=== PATIENT | female | born 1950 | race Caucasian/White ===

== ENCOUNTER → 2017-07-27 09:54 | Outpatient (REF) | payer MEDICARE, SELFPAY ==
[2017-07-27 13:31] LABS: Basophils % 0.8 % (0.1-2.0); Eosinophils % 0.6 % (0.1-12.0); Hematocrit 43.5 % (37.0-47.0); Hemoglobin 14.5 g/dL (12.2-16.2); Lymphocytes # 1.3 K/mm3 (0.7-4.5); Lymphocytes % 36.1 K/mm3 (10-50); Mean Corpuscular HGB Conc 33.2 g/dL (31.8-35.4); Mean Corpuscular Hemoglobin 33.1 pg (27.0-31.2); Mean Corpuscular Volume 99.6 fl (81-99); Monocytes # 0.2 K/mm3 (0.1-1.0); Monocytes % 6.5 % (1.7-9.3); Neutrophils # 2.1 K/mm3 (1.8-7.8); Neutrophils % 55.9 % (37.0-80.0); Platelet Count 293 K/mm3 (142-424); Red Blood Count 4.37 M/mm3 (4.20-5.40); Red Cell Distribution Width 12.5 % (11.5-17.5); White Blood Count 3.7 K/mm3 (4.8-10.8)
[2017-07-27 13:53] LABS: Alanine Aminotransferase 19 U/L (12-78); Albumin Level 3.9 gm/dL (3.4-5.0); Albumin/Globulin Ratio 1.3 (1.1-1.8); Alkaline Phosphatase 63 U/L (46-116); Anion Gap 9.6 mEq/L (5-15); Aspartate Amino Transferase 17 U/L (15-37); Bilirubin,Total 0.3 mg/dL (0.2-1.0); Blood Urea Nitrogen 13 mg/dL (7-18); Calcium 9.4 mg/dL (8.5-10.1); Carbon Dioxide 32 mmol/L (21.0-32.0); Chloride 105 mmol/L (98-107); Chol/HDL Ratio 4.6 (1-3.5); Cholesterol 268 mg/dL (140-200); Creatinine,Serum 0.71 mg/dL (0.55-1.02); Estimated Glomerular Filt Rate 83 ml/min (>60); Free T4 (Free Thyroxine) 0.84 ng/dl (0.76-1.46); GFR (African American) 100 ML/MIN (>60); Globulin 3.1 gm/dl (1.3-3.2); Glucose 95 mg/dL (74-106); HDL Cholesterol 58 mg/dL (29-89); LDL Cholesterol 193 mg/dL (0-130); Potassium 4.6 mmoL/L (3.5-5.1); Sodium 142 mmol/L (136-145); Thyroid Stimulating Hormone 5.84 uIU/ml (0.358-3.740); Triglycerides 83 mg/dL (30-200); VLDL Cholesterol 17 mg/dL (0-40)
[2017-07-28 15:40] LABS: Vitamin D 25 Hydroxy 69.2 ng/mL (30.0-100.0)
== END ==
LOC: LAB 09:54
PROVIDERS: Visit Provider Emergency Medicine
DX: R07.9 Chest pain, unspecified (principal); R53.83 Other fatigue
CPT/HCPCS: 80053; 80061; 82652; 84439; 84443; 85025

== ENCOUNTER → 2017-08-07 10:44 | Outpatient (CLI) | payer MEDICARE, MEDICAID, SELFPAY ==
--- NOTE | 2017-08-07 10:49 | XR_ITS ---
XR DEXA axial skeleton COMPARISON: None HISTORY: Patient is postmenopausal TECHNIQUE: DEXA scanning of the lumbar spine and bilateral hips FINDINGS: The areas BMD lumbar spine L1-L4 is 0.775 g/ centimeters squared and the T score is -3.4. The total BMD right hip is 0.776 g/sq cm with a T score of -1.8. And the right femoral neck is 0.645 g centimeters square with a T score of -2.8. The values are similar for the left hip. IMPRESSION: Findings in the osteoporotic range for the spine and bilateral hips, consider follow-up study in 2 years
--- NOTE | 2017-08-07 10:49 | MM_ITS ---
MM Dig screening mamm BI w/CAD CAD Screening COMPARISON: Digital mammograms 03/08/2012 INDICATION: There is no personal or family history of breast cancer. TECHNIQUE: Standard CC and MLO images were obtained. R2 CAD reviewed. FINDINGS: Moderate heterogenic fibroglandular densities are seen in both breast. There are stable asymmetric density lower inner quadrant left breast. There is no new or suspicious lesion in either breast and no suspicious microcalcifications. IMPRESSION: Stable exam with moderate diffuse breast density BI-RADS Category: 2 Benign Finding(s) RECOMMENDED FOLLOW-UP: 1YR - 1 YEAR FOLLOW-UP (A letter has been sent to the patient regarding results of the study.)
== END ==
PROVIDERS: PCP Emergency Medicine; Visit Provider Emergency Medicine
DX: Z12.31 Encounter for screening mammogram for malignant neoplasm of breast (principal); Z78.0 Asymptomatic menopausal state
CPT/HCPCS: 77067; 77080

== ENCOUNTER → 2017-08-12 06:42 | Outpatient (CLI) | payer MEDICARE, MEDICAID, SELFPAY ==
--- NOTE | 2017-08-12 06:55 | CA_ITS ---
PROCEDURE: 2-D M-mode and color Doppler study INDICATIONS FOR THE TEST: Chest pain+ COPD Heart Murmur Tobacco Smoking Palpitations+ Fatigue Syncope Edema+ Hypertension Diabetes Mellitus Rheumatic Fever SOB ZARATE Obesity Hyperlipidemia+ Family History HD Additional History PATIENT INFORMATION HEIGHT: 64 WEIGHT: 115 GENDER: Female B/P: 139/49 2-D/M-MODE INTERPRETATION: 2-D MEASUREMENTS OBSERVED VALUES IN CMS Right Ventricular Dimension (RVDd) 2.5 Interventricular Septum (Thickness)(IVsd) 0.9 Left Ventricular Internal Dimensions(LVIDd) 3.3 Left Ventricular Posterior Wall (Thickness)(LVPWd) 0.8 Aortic Root 2.0 Aortic Cusp Separation 1.6 Left Atrial Dimensions (LAD) 2.6 2D 1. Left atrium is normal size, left ventricle is normal size, there is no concentric left ventricular hypertrophy, visually estimated ejection fraction 55% with no obvious regional wall motion abnormality. 2. The right atrium and right ventricle are mildly enlarged with normal contractility. 3. The aortic valve is minimally thickened and fibrosed. 4. The mitral and tricuspid valvular grossly normal. 5. The pulmonic valve is poorly visualized. 6. No significant pericardial effusion noted. DOPPLER INTERROGATION: Doppler interrogation of the aortic, mitral and tricuspid valvular presence of mild aortic, mild mitral and tricuspid regurgitation, tricuspid and jet velocity insufficient for calculation of the right ventricular systolic pressure. Diastolic parameters are within normal range. CONCLUSION: 1. Normal left ventricular size, preserved left ventricular systolic function, visually estimated ejection fraction 55% with no obvious regional wall motion abnormality, diastolic parameters are within normal range. 2. Mild aortic, mild mitral and tricuspid regurgitation 3. No significant pericardial effusion noted.
--- NOTE | 2017-08-12 06:55 | NM_ITS ---
History and Indications: Hyperlipidemia, family history, chest pain. Procedure: Patient exercised on Ariel protocol 6 metastases and 30 seconds, resting heart rate was 92 bpm resting blood pressure 139/49, with exercise maximum heart rate achieved was 1 44 bpm which is equal to 93% of the maximum predicted heart rate and a blood pressure was 160/70. Test was stopped due to shortness of breath and fatigue. Patient has adequate exercise capacity achieved 7mets of workload on treadmill, the blood pressure response to exercise was adequate. Electrocardiogram: Resting electrocardiogram showed the sinus rhythm, with exercise there is less than 1.[address] segment depression noted from the baseline EKG. The EKG portion of the exercise Myoview is negative for ischemia. Cardiac stress and resting SPECT images: Cardiac stress and rest SPECT images were obtained using technetium 99 Myoview 31.4 mCi at stress and 10.8 mCi at rest, gated SPECT further analysis of segmental wall motion and calculation of the ejection fraction also done. Cardiac stress and rest show uniform myocardial activity without any segmental perfusion abnormality, computer derived ejection fraction is over 65% with no obvious regional wall motion abnormality, right ventricle is normal size and contractility. Conclusion: 1. The EKG portion of the exercise Myoview is negative for ischemia. Patient has adequate exercise capacity achieved 7mets of workload on treadmill, the blood pressure response to exercise was adequate, there was no exercise-induced chest discomfort. 2. No obvious scintigraphic evidence of reversible ischemia seen, computer derived ejection fraction is over 65% with no obvious regional wall motion abnormality, right ventricle is normal size and contractility. 3. Normal exercise Myoview study.
--- NOTE | 2017-08-12 09:13 | HMH.ITSHM ---
atorvastatin vitamins levothyroxine asa
== END ==
PROVIDERS: PCP Emergency Medicine; Visit Provider Emergency Medicine
DX: R07.9 Chest pain, unspecified (principal)
CPT/HCPCS: 78452; 93017; 93306; A9502

== ENCOUNTER 2018-10-31 11:50 | Observation (INO) ==
--- NOTE | 2018-10-31 12:20 | Emergency Department Note ---
[facility] [place] Clinical Impression: Fractured calcaneus Qualifiers: Encounter type: initial encounter Calcaneus location: unspecified portion of calcaneus Fracture type: closed Fracture alignment: displaced Laterality: right Qualified Code(s): S92.001A - Unspecified fracture of right calcaneus, initial encounter for closed fracture Disposition: Still a Patient Condition on Discharge: Good Referrals: Marilee Oliveros [Primary Care Provider] - Jena Max MD [Physician] - (To Or for surgical intervention by Dr Max) Time of Disposition: 13:49 Medical Decision Making - Je Inquiry Pt receiving controlled substance: No Je was queried for this patient: No Vital Signs: 10/31/18 12:01 10/31/18 12:10 Temperature 98.2 F 98.2 F Temperature Source Oral Oral Pulse Rate [Right Radial] 98 H 98 H Respiratory Rate 18 18 Blood Pressure [Right Arm] 141/85 H 141/85 H Blood Pressure Mean [Right Arm] 103 103 Blood Pressure Source [Right Arm] Automatic Cuff Automatic Cuff Blood Pressure Position [Right Arm] Sitting Sitting 02 Sat by Pulse Oximetry 96 96 Oxygen Delivery Method Room Air Room Air Orders (Tests/Meds): ORDERS Category Date Time Status Foot XR right minimum 3 views [XR foot RT min 3V] Stat Exams 10/31/18 12:15 Taken XR ankle RT min 3V Stat Exams 10/31/18 12:15 Taken XR calcaneus RT min 2V Routine Exams 10/31/18 Ordered CMP [Comprehensive Metabolic Panel] Stat Lab 10/31/18 13:38 Ordered Complete Blood Count Man Dif Stat Lab 10/31/18 13:38 Uncollected - Radiology Data #1 Image(s): Ankle, Foot/Toes Image Reviewed: Yes I reviewed the patient's radiology image Fractured calcaneus - Physician Consults Physician Consulted: Winter Time: 12:45 Reason -: Orthopedic Eval/Care Comment/Response: Spoke with Dr Max and informed her of xray findings, she is in house and will come to [facility] to see patient - Reevaluation(s) Time: 13:15 Reevaluation #1: Dr nEciso at bedside spoke with patient and informed her of Fractured Calcanous and that this required surgical intervention and patient would be going to surgery today/immediately patient verbalized understanding. Dr Max advised that she would notify OR team and would have patient moved to OR/bed and after she finished her current case patient would be taken to OR for surgery and they would discuss further treatment such as admission etc after surgery. Patient verbalized understanding Time: 13:42 Reevaluation #3: Spoke with house and clarified that Dr Max would be completing admission orders and patient could go to bed and wait for OR team. Patient care to be turned over to Dr Max and all further orders and treatment per leydi Time reevaluation 3: 13:48 Reevaluation #2: Patient to be admitted to room 213 Admission orders will be completed by Dr Max patient ready for transfer [facility] [place] - General Stated complaint: Right foot pain and swollen Time Seen by Provider: 10/31/18 12:17 Mode of Arrival: Wheelchair Source of Information: Patient Limitations: No Limitations Description of Symptoms (Recalled from Triage Doc. by RN): C/O RT FOOT/ANKLE PAIN, SWELLING, BRUISING AND BLISTERS SINCE THURSDAY. PT STATES THAT SHE WAS WALKING AND HEARD A "LOUD POP" AND THE BRUISING AND PAIN HAS GOTTEN WORSE SINCE THURSDAY HEENT Symptoms (Recalled from RN notes): No Resp Symptoms (Recalled from RN notes): No Skin Symptoms (Recalled from RN notes): No MS Symptoms (Recalled from RN notes): Yes (RT FOOT/ANKLE INJURY) Functional Status (Recalled from RN notes): N/A - History of Present Illness Provider Complaint: Patient state that she was walking Thursday evening when she felt and heard a loud "pop" in her right ankle State htat ever since she has been having bruising and pain in the right foot and ankle State that she also noticed she had a couple of blisters on the foot one on the side of the foot and one on the back of the heel that come since she heard the pop but she has been walking on it funny due to the pain and not sure if that may have caused it. Denies numbness and tingling in foot - Related Data Home Medications Medication Instructions Recorded Confirmed ergocalciferol (vitamin D2) 50,000 50,000 unit PO QWEEK cap 07/27/17 05/13/18 unit capsule Alendronate Sodium [Fosamax 70mg 70 mg PO WEEKLY 05/13/18 05/13/18 Tablet] Calcium Carbonate/Vitamin D3 1 cap PO DAILY 05/13/18 05/13/18 [Calcium 600 + Vit D Softgel] Levothyroxine Sodium [Synthroid 50 mcg PO DAILY 05/13/18 05/13/18 50mcg (0.05mg) tab] Allergies Allergy/AdvReac Type Severity Reaction Status Date / Time No Known Allergies Allergy Verified 08/10/17 09:03 - Worker's Comp Is this a Worker's Comp case?: No [facility] History - Hepatitis A Screen Drug use history?: No High risk sexual behaviors?: No History of sexually transmitted infection?: No Currently employed?: No Childcare worker?: No Do you have indoor plumbing?: Yes Do you have electricity?: Yes Attestation statement:: This patient has been screened for Hepatitis A risk factors. I have reviewed the patient's past medical history: Yes Other Medical History: Reports: Hypothyroidism Laterality Cases: Bilateral: Tonsillectomy Amputation: No Fractures: No - Social History Smoking Status: Never smoker Alcohol Intake: never Substance Use Type: denies use Occupational Status: retired Housing: apartment Household Members: other Family Hx:: Thyroid Disorder, Cancer, Heart Attack, Stroke ROS Obtained: Yes All systems reviewed & no additional complaints, Yes Systems reviewed as appropriate & no additional complaints - Allergic/Immunologic Comments: Pain, swelling bruising and two large blister on right foot and ankle since she was walking last Thursday and hear a pop in her foot unable to bear weight on it ever since Physical Exam - General General appearance: alert, in no apparent distress - Respiratory Respiratory exam: Present: normal lung sounds bilaterally. Absent: respiratory distress - Cardiovascular Cardiovascular exam: Present: regular rate, normal rhythm. Absent: JVD - Abdominal Exam Abdominal exam: Present: soft, normal bowel sounds. Absent: distention, tenderness, guarding - Expanded Lower Extremity Exam Right Ankle exam: Present: tenderness, swelling, ecchymosis Foot/toe exam: Present: tenderness, swelling, ecchymosis, other (fluid filled blister noted on outter side of foot and heel area of foot that appeared after patient felt pop in foot on Thursday) Neurovascular/Tendon exam: Present: normal capillary refill. Absent: pulse deficit, motor deficit, sensory deficit, extremity cold to touch, pallor Gait: not tested/not observed Comment: Extensive swelling noted to foot, pedal pulse palpated patient denies loss of sensation of foot or any numbness or tingling. able to move toes and has been walking of foot since Thursday - Neurological Exam Neurological exam: Present: alert, oriented X3
[2018-10-31 14:05] LABS: Basophils % 0.5 % (0.1-2.0); Eosinophils % 0.4 % (0.1-12.0); Hemoglobin 13.4 g/dL (12.2-16.2); Lymphocytes # 1.3 K/mm3 (0.7-4.5); Lymphocytes % 27.6 % (10-50); Mean Corpuscular HGB Conc 31.8 g/dL (31.8-35.4); Mean Corpuscular Volume 100.2 fl (81-99); Monocytes # 0.3 K/mm3 (0.1-1.0); Monocytes % 5.8 % (1.7-9.3); Neutrophils # 3.2 K/mm3 (1.8-7.8); Neutrophils % 65.7 % (37.0-80.0); Platelet Count 280 K/mm3 (142-424); Red Blood Count 4.19 M/mm3 (4.20-5.40); Red Cell Distribution Width 13.6 % (11.5-17.5); White Blood Count 4.8 K/mm3 (4.8-10.8)
[2018-10-31 14:09] LABS: Albumin Level 3.8 gm/dL (3.4-5.0); Albumin/Globulin Ratio 1.1 (1.1-1.8); Anion Gap 11.1 mEq/L (5-15); Bilirubin,Total 0.6 mg/dL (0.2-1.0); Calcium 8.9 mg/dL (8.5-10.1); Globulin 3.5 gm/dl (1.3-3.2); Total Protein,Serum 7.3 gm/dL (6.4-8.2)
--- NOTE | 2018-10-31 19:18 | Progress Note ---
[facility] Anesthesia Record Part I Intake, IV Amount: 800 Estimated blood loss (mL): 10 Urine output (mL): 0 (NM) Blood Products used (#): none Blood Pressure: 143/72 SaO2: 97 Pulse Rate: 104 Respiratory Rate: 16 Temperature: 97.2 F Patient is:: Awake, Stable Stable to PACU at:: 19:10
--- NOTE | 2018-10-31 19:18 | Progress Note ---
[facility] Anesthesia Checklist - Patient Identification Patient Identification: Arm Band, Verbal (Name & ) - Structural Data Admitted From: Inpatient Planned Operative Procedure/s: Right closed reduction percutaneous screw fixation of Calcaneus Consent for Planned Operative Procedure(s) Verified: Yes Verified Documents: Surgical Consent, History and Physical - NPO Status Verified Time NPO: 07:00 - Chart Verification Results Verified: CBC, BMP - Additional verifications Anesthesia Reactions: No - Airway Assessment C-Spine Mobility Assessed: Yes TMJ Mobility Assessed: Yes Dentition: Dentures-good fit (removed) - Neurological Assessment Level of Consciousness: Awake, Alert, Appropriate, Follows Commands (at times will not listen to guidance and will not communication) Hx Seizures: No Numbness or tingling in extremities: No - Anesthesia Plan Anesthesia Risk discussed: Yes Anesthesia Plan: Verified ASA Class: II (Emergent) Anesthesia Type: General (with Right popliteal nerve block) [facility] History I have reviewed the patient's past medical history: Yes Medical History: Denies:: Cancer, Diabetes Mellitus Type 1, Diabetes Mellitus Type 2, Internal Pacemaker, MRSA *Have you ever received a pneumonia vaccine?: No *Have you received a flu vaccine this season?: No Other Medical History: Reports: Hypothyroidism, Osteoporosis Laterality Cases: Bilateral: Tonsillectomy Other Surgeries: No: Pacemaker Amputation: No Fractures: No - *Social History Educational Level: Completed High School Smoking Status: Former smoker Alcohol Intake: never Substance Use Type: denies use *Occupational Status:: retired Housing: other Household Members: other *Travel in the last 8 weeks: None - Psychiatric History Expresses thoughts of harming self/others: None Suicide Plan Description: No Plan Family Hx:: Thyroid Disorder, Cancer, Heart Attack, Stroke
--- NOTE | 2018-10-31 19:19 | Progress Note ---
[facility] Anesthesia Record Part II Discharge Time: 19:40 Destination: Medical Surgical Department PACU nurse assessment reviewed?: Yes Patient Condition:: Good Anesthesia Complications:: None Swallowing reflex intact?: Yes Cyanosis?: No
--- NOTE | 2018-10-31 19:54 | History & Physical Report ---
*Admission Date: 10/31/18 *Chief complaint: R calcaneus fx *History of present illness: 68yo F with a chief complaint of R foot pain that presented to the [facility] [place] today. She began as an orthopedic consult but was taken to the operating room urgently and is now being admitted under me for ongoing post-operative care. She reports feeling a pop in the R heel while she was walking on Thursday; she is not sure where she was but thinks she was taking groceries into the house from the car. She is a somewhat poor historian and occasionally becomes confused. She presented to the [facility] with her landlord, who has only known her around 6 months. She lives alone and does not have family she speaks with; she never and has no children. On Thursday, when her foot popped, she had immediate pain but continued to hobble around the house on it. Since then, the foot has become increasingly swollen and bruised, and two large blisters developed on her heel. She reports a history of thyroid issues and takes levothyroxine. She believes she also takes a cholesterol pill and something for her bones, but she isn't sure what they are. She also may or may not have been on a beta carlo, but this ran out and she stopped taking them. I evaluated the patient in [facility] and observed severe swelling of the hindfoot with diffuse ecchymosis and two large blisters, one filled with serous fluid, the other with blood. There was not yet skin necrosis, but the tissue overlying the fracture site was dusky. XR revealed a tongue-type calcaneus fracture. This luckily had not resulted in an open wound yet, but within 24 hours it would have if surgery not performed urgently. I recommended ORIF immediately. After discus sing the risks and benefits of both surgical and non-surgical treatment, the patient elected to undergo surgery and provided informed consent. She was taken to the OR where surgery was performed without complication; see operative note for more detail. [facility] History I have reviewed the patient's past medical history: Yes Medical History: Reports:: Hyperlipidemia, Osteoporosis Denies:: Cancer, Diabetes Mellitus Type 1, Diabetes Mellitus Type 2, Internal Pacemaker, MRSA, Seizures *Have you ever received a pneumonia vaccine?: No *Have you received a flu vaccine this season?: No Other Medical History: Reports: Hypothyroidism, Osteoporosis Laterality Cases: Bilateral: Tonsillectomy Other Surgeries: No: Pacemaker Amputation: No Fractures: No - *Social History Educational Level: Completed High School Smoking Status: Former smoker Alcohol Intake: never Substance Use Type: denies use *Occupational Status:: retired Housing: other Household Members: other *Travel in the last 8 weeks: None - Psychiatric History Expresses thoughts of harming self/others: None Suicide Plan Description: No Plan Family Hx:: Thyroid Disorder, Cancer, Heart Attack, Stroke Review of Systems - Review of Systems Review of systems:: pertinent systems reviewed and negative unless documented below Meds Home Medications Medication Instructions Recorded Confirmed Type ergocalciferol (vitamin D2) 50,000 50,000 unit PO QWEEK cap 07/27/17 10/31/18 History unit capsule Alendronate Sodium [Fosamax 70mg 70 mg PO WEEKLY 05/13/18 10/31/18 History Tablet] Calcium Carbonate/Vitamin D3 1 cap PO DAILY 05/13/18 10/31/18 History [Calcium 600 + Vit D Softgel] Levothyroxine Sodium [Synthroid 50 mcg PO DAILY 05/13/18 10/31/18 History 50mcg (0.05mg) tab] Allergies Allergy/AdvReac Type Severity Reaction Status Date / Time No Known Allergies Allergy Verified 08/10/17 09:03 Exam Vital signs and Labs for Last 24 Hours: Temp Pulse Resp BP Pulse Ox 97.2 F L 104 H 16 143/72 H 97 10/31/18 19:18 10/31/18 19:18 10/31/18 19:18 10/31/18 19:18 10/31/18 15:40 Laboratory Results - last 24 hr 10/31/18 13:35: Sodium 141, Potassium 4.1, Chloride 105, Carbon Dioxide 29, Anion Gap 11.1, BUN 11, Creatinine 0.78, Estimated Creat Clear 51, Estimated GFR 74, Est GFR ( Amer) 89, Glucose 96, Calcium 8.9, Total Bilirubin 0.6, AST 17, ALT 25, Alkaline Phosphatase 59, Total Protein 7.3, Albumin 3.8, Globulin 3.5 H, Albumin/Globulin Ratio 1.1 10/31/18 13:35: WBC 4.8, RBC 4.19 L, Hgb 13.4, Hct 42.0, MCV 100.2 H, MCH 31.8 H , MCHC 31.8, RDW 13.6, Plt Count 280, MPV 8.0, Neut % (Auto) 65.7, Lymph % (Auto) 27.6, [place] % (Auto) 5.8, Eos % (Auto) 0.4, Baso % (Auto) 0.5, Neut # (Auto) 3.2, Lymph # (Auto) 1.3, [place] # (Auto) 0.3, Eos # (Auto) 0.0, Baso # (Auto) 0.0 I & O for Last 24 hours: Intake & Output 10/29/18 10/30/18 10/31/18 11/01/18 11:59 11:59 11:59 11:59 Intake Total 800 / 800 Balance 800 / 800 Weight 131 lb 6 oz Narrative: Exam is PRE-operatively - *Routine HEENT Exam Head: Present: normocephalic Eye: Present: EOMI ENT: Present: mucous membranes moist - *Routine Respiratory Exam Present: CTA bilaterally. Absent: accessory muscle use, wheezes - *Routine Cardiovascular Exam Present: RRR - *Routine Abdominal Exam Present: soft. Absent: tenderness - *Routine Extremities Exam Comments: R foot: severe soft tissue swelling around hindfoot/heel with diffuse ecchymosis 2 large fluid-filled blisters over posterior heel; one filled with serous fluid, the other with blood significant tenderness present over posterior heel, where fracture is palpable and placing pressure on skin from within no full-thickness tissue necrosis over posterior heel, but skin dusky; impending open fracture SILT distally RLE in all distributions palpable pedal pulses RLE, foot warm wiggles toes, DF/PF of R ankle impaired due to pain/injury R calf soft, non-tender post-op exam: patient splinted, RLE elevated, lethargic as awakening from anesthesia; sensation/motion impaired from nerve block H&P: Result - Imaging and Cardiology TESTING Status: image reviewed by me (tongue-type calcaneus fracture, displaced and tenting skin) Assessment and Plan (1) Calcaneus fracture, right Current visit: Yes Status: Acute Category: Medical Code(s): S92.001A - Unspecified fracture of right calcaneus, initial encounter for closed fracture - Assessment and plan all Dx Assessment and Plan for all problems:: 68yo F POD 0 s/p ORIF R calcaneus fracture -- NWB RLE, do not remove splint; keep RLE elevated on pillows (at least 2-3 at all times) -- DVT prophy: SCDs -- encourage IS 10x/hr -- pain control -- complete 23hr prophy antibiotics -- PT/OT to eval -- Dr. Dolan on consult -- dispo planning; recommend SNF placement for rehab as patient lives alone
--- NOTE | 2018-10-31 20:06 | Operative Note ---
Date of procedure: 10/31/18 Pre-op Diagnosis:: R calcaneus fracture; tongue-type with skin tenting/impending open fracture Post-op Diagnosis:: R calcaneus fracture; tongue-type with skin tenting/impending open fracture Procedure performed:: ORIF R calcaneus fracture Surgeon:: Jena Max MD Equipment Operator(s):: NOE Barrios SET UP WORKER:: Edison Best Anesthesia: GETA, regional (popliteal block) Estimated blood loss (mL): 5 Clinical Note:: 68yo F with a chief complaint of R foot pain that presented to the [facility] earlier today. She began as an orthopedic consult but was taken to the operating room urgently and is now being admitted under me for ongoing post-operative care. She reports feeling a pop in the R heel while she was walking on Thursday; she is not sure where she was but thinks she was taking groceries into the house from the car. She is a somewhat poor historian and occasionally becomes confused. She presented to the [facility] with her landlord, who has only known her around 6 months. She lives alone and does not have family she speaks with; she never and has no children. On Thursday, when her foot popped, she had immediate pain but continued to hobble around the house on it. Since then, the foot has become increasingly swollen and bruised, and two large blisters developed on her heel. She reports a history of thyroid issues and takes levothyroxine. She believes she also takes a cholesterol pill and something for her bones, but she isn't sure what they are. She also may or may not have been on a beta carlo, but this ran out and she stopped taking them. I evaluated the patient in [facility] and observed severe swelling of the hindfoot with diffuse ecchymosis and two large blisters, one filled with serous fluid, the other with blood. There was not yet skin necrosis, but the tissue overlying the fracture site was dusky. XR revealed a tongue-type calcaneus fracture. This luckily had not resulted in an open wound yet, but within 24 hours it would have if surgery not performed urgently. I recommended ORIF immediately. After discussing the risks and benefits of both surgical and non-surgical treatment, the patient elected to undergo surgery and provided informed consent. Operative findings:: Maryam 4.0mm cannulated fully-threaded cancellous screws x2; both 50mm long with washers Operative note:: The patient was identified in preoperative holding and the right ankle signed by myself. Consent was reviewed and confirmed with the patient. She spoke with anesthesia and the decision was made to perform a regional nerve block to the right lower extremity in conjunction with general anesthesia for the procedure. Popliteal nerve block was performed in the preoperative holding area and the patient transferred to the OR. She was brought into the room on her stretcher and 1 g Ancef infused intravenously. General anesthesia was then induced and she was turned prone onto the OR table. Gel pads were used to pad both suprapubic and axillary regions. Her arms were placed in a forward elevated position on well-padded arm holders. The left knee and foot were padded as well. Nonsterile tourniquet was placed on the lower right leg and the right ankle prepped and draped in the usual sterile fashion. Timeout was performed, identifying the correct patient, correct procedure, and correct site. The procedure was begun by first elevating the right lower extremity for around 3 minutes and then elevating the tourniquet to 250 mmHg. The decision was made not to use Esmarch on the foot or ankle to avoid further traumatizing the soft tissues. There were 2 very large fluid-filled blisters over the posterior aspect of the right heel, one filled with a serous fluid in the other with blood. A sterile 18-gauge hypodermic needle was used to poke a small hole in each blister sac and expressed all fluid from the blister. It was noted that there was extensive ecchymosis and swelling throughout the hindfoot region. Next, a small, longitudinal incision was made just medial to the Achilles tendon and superior to the calcaneal tuberosity. This was kept around 2 cm in length. This incision was able to avoid both blisters and was made through fairly healthy appearing tissue. Hemostat was inserted into the wound and soft tissue bluntly spread until the posterior tuberosity of the calcaneus was visualized. C-arm was brought in and the lateral of the calcaneus taken. Using C-arm for guidance, large pointed tenaculum clamps were placed with 1 flores on the posterior tuberosity of the calcaneus and the second was placed through the inferior fat pad of the heel. By compressing this clamp together, I was able to easily reduce the tongue type calcaneus fracture. With the tenaculum clamps holding the reduction, I shot two K wires across the fracture site, perpendicular to the fracture line and traversing bicortically. Once I was happy with my pin placement on C arm, I measured my screw length directly off the K wires and they both measured 50 mm long. The decision was made to use 4.0 mm cancellous screws, fully threaded and cannulated. These were a Sap[employer] product and were self drilling, self-tapping screws. The patient has fairly soft bone and I decided to use a washer with each screw. The screws and their corresponding washers were then placed over the K wires and advanced until they purchased the bone bicortically, reducing the fracture. Once I was satisfied with the reduction and fixation on x-ray, I remove the K wires and took final fluoroscopic images. Tourniquet was dropped and hemostasis obtained with cautery. The wound was copiously irrigated with saline and closed in a layered fashion using 2-0 Vicryl for subcutaneous tissue and 3-0 nylon on the skin. Sterile dressings were applied with Xeroform and 4 x 4's and a well-padded posterior mold splint applied with web roll and 4 inch Ortho-Glass and Justin wrap. The patient was then extubated transferred back to her cart, where she was transferred to PACU in good condition. There were no complications during this case. Tourniquet time (min): 38 Condition: stable Disposition: PACU Specimens:: none Complications:: none
--- NOTE | 2018-11-01 07:32 | Pharmacy Consult Notes ---
[facility] Pharmacy VTE Monitoring - Patient Demographics Admission date: 10/31/18 Report Date: 11/01/18 Time: 07:32 Allergies/Adverse Reactions: Patient Allergies No Known Allergies Allergy (Verified 08/10/17 09:03) Height: 1.63 m Weight: 61.405 kg Patient Problems: Current Active Problems (Updated 10/31/18 @ 20:02 by Jena Max MD) Fractured calcaneus (Acute) Calcaneus fracture, right (Acute) - VTE Risk Labs: VTE Related Lab Results Hgb 13.4 g/dL (12.2-16.2) 10/31/18 13:35 Hct 42.0 % (37.0-47.0) 10/31/18 13:35 Plt Count 280 K/mm3 (142-424) 10/31/18 13:35 BUN 11 mg/dL (7-18) 10/31/18 13:35 Creatinine 0.78 mg/dL (0.55-1.02) 10/31/18 13:35 Estimated Creat Clear 51 mL/min (50-200) 10/31/18 13:35 VTE Score: 2 VTE Risk Level: Very Low Risk - Prophylaxis VTE Prophylaxis Ordered?: Yes Types of VTE Prophylaxis: IPCS Thigh High Location of Applied Device: Left Leg - VTE Diagnosis Confirmed Treatment or plan recommended: Continue Current Treatment
--- NOTE | 2018-11-01 09:28 | Consult Report ---
*Admission Date: 10/31/18 *Reason for consult:: Non-compliance with her home medications *History of present illness: 68yo F with a chief complaint of R foot pain that presented to the [facility] earlier today. She began as an orthopedic consult but was taken to the operating room urgently and is now being admitted under me for ongoing post-operative care. She reports feeling a pop in the R heel while she was walking on Thursday; she is not sure where she was but thinks she was taking groceries into the house from the car. She is a somewhat poor historian and occasionally becomes confused. She presented to the [facility] with her landlord, who has only known her around 6 months. She lives alone and does not have family she speaks with; she never and has no children. On Thursday, when her foot popped, she had immediate pain but continued to hobble around the house on it. Since then, the foot has become increasingly swollen and bruised, and two large blisters developed on her heel. She reports a history of thyroid issues and takes levothyroxine. She believes she also takes a cholesterol pill and something for her bones, but she isn't sure what they are. She also may or may not have been on a beta carlo, but this ran out and she stopped taking them (copied from Dr. Max's H&P). [facility] History I have reviewed the patient's past medical history: Yes Medical History: Reports:: Hyperlipidemia, Osteoporosis Denies:: Cancer, Diabetes Mellitus Type 1, Diabetes Mellitus Type 2, Internal Pacemaker, MRSA, Seizures *Have you ever received a pneumonia vaccine?: No *Have you received a flu vaccine this season?: No Other Medical History: Reports: Hypothyroidism, Osteoporosis Laterality Cases: Bilateral: Tonsillectomy Other Surgeries: No: Pacemaker Amputation: No Fractures: No - *Social History Educational Level: Completed High School Smoking Status: Former smoker Alcohol Intake: never Substance Use Type: denies use *Occupational Status:: retired Housing: other Household Members: other *Travel in the last 8 weeks: None - Psychiatric History Expresses thoughts of harming self/others: None Suicide Plan Description: No Plan Family Hx:: Thyroid Disorder, Cancer, Heart Attack, Stroke Review of Systems - Constitutional Reports weakness, Denies fatigue, Denies lack of energy, Denies malaise, Denies night sweats - Eyes Denies double vision, Denies loss of vision - ENT Denies change in voice, Denies ear pain - *Cardiovascular Denies chest pain at rest, Denies chest pain with activity, Denies shortness of breath, Denies shortness of breath with activity - *Respiratory Denies change in phlegm color, Denies chest congestion, Denies cough, Denies shortness of breath, Denies shortness of breath with activity - *Gastrointestinal Denies change in bowel habits, Denies change in stools - *Genitourinary Denies difficulty urinating - *Musculoskeletal Reports other (pain in her foot consistent wir s/p surgery) - Integumentary/Breasts Denies change in hair, Denies excessive hair growth - *Neurologic Denies abnormal movements, Denies lack of coordination - Psychiatric Reports lack of enjoyment, Reports anxiety, Denies thoughts of hurting/killing others - Endocrine Denies heat intolerance - Hematologic/Lymphatic Denies enlarged lymph nodes - Allergic/Immunologic Denies lip swelling Meds Home Medications Medication Instructions Recorded Confirmed Type ergocalciferol (vitamin D2) 50,000 50,000 unit PO QWEEK cap 07/27/17 10/31/18 History unit capsule Alendronate Sodium [Fosamax 70mg 70 mg PO WEEKLY 05/13/18 10/31/18 History Tablet] Calcium Carbonate/Vitamin D3 1 cap PO DAILY 05/13/18 10/31/18 History [Calcium 600 + Vit D Softgel] Levothyroxine Sodium [Synthroid 50 mcg PO DAILY 05/13/18 10/31/18 History 50mcg (0.05mg) tab] Allergies Allergy/AdvReac Type Severity Reaction Status Date / Time No Known Allergies Allergy Verified 08/10/17 09:03 Exam Vital signs and Labs for Last 24 Hours: Temp Pulse Resp BP Pulse Ox 97.8 F 85 17 137/72 98 11/01/18 08:00 11/01/18 08:00 11/01/18 08:00 11/01/18 08:00 11/01/18 08:00 Laboratory Results - last 24 hr 10/31/18 13:35: Sodium 141, Potassium 4.1, Chloride 105, Carbon Dioxide 29, Anion Gap 11.1, BUN 11, Creatinine 0.78, Estimated Creat Clear 51, Estimated GFR 74, Est GFR ( Amer) 89, Glucose 96, Calcium 8.9, Total Bilirubin 0.6, AST 17, ALT 25, Alkaline Phosphatase 59, Total Protein 7.3, Albumin 3.8, Globulin 3.5 H, Albumin/Globulin Ratio 1.1 10/31/18 13:35: WBC 4.8, RBC 4.19 L, Hgb 13.4, Hct 42.0, MCV 100.2 H, MCH 31.8 H , MCHC 31.8, RDW 13.6, Plt Count 280, MPV 8.0, Neut % (Auto) 65.7, Lymph % (Auto) 27.6, [place] % (Auto) 5.8, Eos % (Auto) 0.4, Baso % (Auto) 0.5, Neut # (Auto) 3.2, Lymph # (Auto) 1.3, [place] # (Auto) 0.3, Eos # (Auto) 0.0, Baso # (Auto) 0.0 I & O for Last 24 hours: Intake & Output 10/29/18 10/30/18 10/31/18 11/01/18 11:59 11:59 11:59 11:59 Intake Total 1730 / 1730 Output Total 600 / 600 Balance 1130 / 1130 Weight 135 lb 6.011 oz - *Routine HEENT Exam Head: Present: normocephalic Eye: Present: EOMI, PERRL ENT: Present: mucous membranes moist - *Routine Neck Exam Present: supple. Absent: lymphadenopathy - *Routine Respiratory Exam Present: CTA bilaterally - *Routine Cardiovascular Exam Present: RRR - *Routine Abdominal Exam Present: soft, normoactive bowel sounds. Absent: tenderness - *Routine Extremities Exam Absent: cyanosis, clubbing, edema Comments: pain on right foot s/p surgery - *Routine Skin Exam Present: warm. Absent: rash - *Routine Neurological Exam Present: alert, oriented X3 Internal Medicine - CN: Reslt - Labs CBC & Chem 7: 10/31/18 13:35 10/31/18 13:35 Labs: Short CBC 10/31/18 Range/Units 13:35 WBC 4.8 (4.8-10.8) K/mm3 Hgb 13.4 (12.2-16.2) g/dL Hct 42.0 (37.0-47.0) % Plt Count 280 (142-424) K/mm3 BMP 10/31/18 13:35 Sodium 141 Potassium 4.1 Chloride 105 Carbon Dioxide 29 BUN 11 Creatinine 0.78 Glucose 96 Calcium 8.9 Liver Function 10/31/18 Range/Units 13:35 Total Bilirubin 0.6 (0.2-1.0) mg/dL AST 17 (15-37) U/L ALT 25 (12-78) U/L Alkaline Phosphatase 59 (46-116) U/L Albumin 3.8 (3.4-5.0) gm/dL Assessment and Plan (1) Calcaneus fracture, right Current visit: Yes Status: Acute Category: Medical Code(s): S92.001A - Unspecified fracture of right calcaneus, initial encounter for closed fracture (2) Hyperlipidemia Current visit: No Status: Chronic Category: Medical Code(s): E78.5 - Hyperlipidemia, unspecified (3) Hypothyroidism Current visit: No Status: Chronic Category: Medical Code(s): E03.9 - Hypothyroidism, unspecified (4) Osteoporosis Current visit: No Status: Chronic Category: Medical Code(s): M81.0 - Age- related osteoporosis without current pathological fracture (5) Vitamin D deficiency Current visit: No Status: Chronic Category: Medical Code(s): E55.9 - Vitamin D deficiency, unspecified - Assessment and plan all Dx Assessment and Plan for all problems:: will restart home meds. Patient was extremely worried about her insurance not covering her rehab. Case management is consulted to look into this.
[2018-11-01 10:55] LABS: Free T4 (Free Thyroxine) 1.05 ng/dl (0.76-1.46); Thyroid Stimulating Hormone 1.66 uIU/ml (0.358-3.740)
--- NOTE | 2018-11-01 12:44 | Progress Note ---
Subjective Date: 11/01/18 Time: 09:00 Principal diagnosis: s/p ORIF R calcaneus fx Interval history: The patient is doing well this morning, pain controlled with medication. She has been elevating the RLE on pillows overnight and got up with therapy this morning. She lives alone and will not be able to care for herself independently; referral has been sent to [facility]. PN: Obj Ex Vital signs: Temp Pulse Resp BP Pulse Ox 97.8 F 73 17 116/53 L 98 11/01/18 12:00 11/01/18 12:00 11/01/18 12:00 11/01/18 12:00 11/01/18 12:00 - Constitutional no acute distress - Routine HEENT Exam Head: Present: normocephalic Eye: Present: EOMI ENT: Present: mucous membranes moist - Routine Respiratory Exam Present: CTA bilaterally. Absent: wheezes - Routine Cardiovascular Exam Present: RRR - Routine Abdominal Exam Present: soft. Absent: tenderness - Routine Extremities Exam Comments: RLE splinted, no strikethrough; elevated on 2 pillows wiggles toes, SILT across toes RLE calf soft proximal to splint RLE; non-tender brisk cap refill in all toes R foot - Routine Neurological Exam Present: alert, oriented X3, vision grossly intact, hearing grossly intact. Absent: sensory deficit, motor deficit, altered mental status - Routine Psychiatric Exam Present: cooperative, anxious Progress Note: A&P (1) Calcaneus fracture, right Status: Acute Current Visit: Yes (2) Hyperlipidemia Status: Chronic Current Visit: No (3) Hypothyroidism Status: Chronic Current Visit: No (4) Osteoporosis Status: Chronic Current Visit: No (5) Vitamin D deficiency Status: Chronic Current Visit: No Assessment and Plan for All Diagnoses:: 68yo F POD 1 s/p ORIF R calcaneus fracture (limited incision, essentially percutaneous screw fixation of tongue-type calcaneus fracture; impending open fracture with significant soft tissue damage) -- elevate RLE aggressively, at least 2-3 pillows at all times -- pain control; encourage oral meds -- DVT prophy: SCD LLE -- continue PT/OT while in house -- waiting approval for transfer to [facility] for ongoing rehab I will be out of town the rest of this week, but Dr. West will be following this patient is available for any issue that may arise
--- NOTE | 2018-11-02 11:07 | Progress Note ---
Internal Medicine - PN: Subj *Date: 11/02/18 *Time: 11:03 Interval history: She seemed to be doing well today. She mentions that she feels some pain during therapy but is doing a lot better compared to yesterday. She does seem to be very worrisome about everything that is happening around her. She is worried about her insurance not being pain for her visit. She is worried about going to a rehab facility. She is worried about getting thrown out of the hospital and not be able to be in a safe environment. However she had admitted to me that she was on a depression medication in the past and has not been taking it for extended period of time now. Exam Vital signs and Labs for Last 24 Hours: Temp Pulse Resp BP Pulse Ox 97.6 F 77 17 141/62 H 99 11/02/18 07:42 11/02/18 07:42 11/02/18 07:42 11/02/18 07:42 11/02/18 07:42 Laboratory Results - last 24 hr 11/01/18 10:20: TSH 1.66 D, Free T4 1.05 I & O for Last 24 hours: Intake & Output 10/30/18 10/31/18 11/01/18 11/02/18 11:59 11:59 11:59 11:59 Intake Total 1730 / 1730 1080 / 1080 Output Total 600 / 600 400 / 400 Balance 1130 / 1130 680 / 680 Weight 135 lb 6.011 oz 131 lb 1 oz - *Routine HEENT Exam Head: Present: normocephalic Eye: Present: EOMI, PERRL ENT: Present: mucous membranes moist - *Routine Neck Exam Present: supple. Absent: lymphadenopathy - *Routine Respiratory Exam Present: CTA bilaterally - *Routine Cardiovascular Exam Present: RRR - *Routine Abdominal Exam Present: soft, normoactive bowel sounds. Absent: tenderness - *Routine Extremities Exam Absent: edema Comments: Right foot wrapped, consistent with status post surgery - *Routine Skin Exam Present: warm. Absent: rash - *Routine Neurological Exam Present: alert, oriented X3 - Routine Psychiatric Exam Present: normal affect, normal thought process, cooperative, good insight, good judgment, depressed, anxious, paranoid. Absent: suicidal ideation, homicidal ideation, auditory hallucinations, visual hallucinations, tactile hallucinations, agitated, manic, unable to assess Assessment and Plan (1) Calcaneus fracture, right Current visit: Yes Status: Acute Category: Medical Code(s): S92.001A - Unspecified fracture of right calcaneus, initial encounter for closed fracture (2) Hyperlipidemia Current visit: No Status: Chronic Category: Medical Code(s): E78.5 - Hyperlipidemia, unspecified (3) Hypothyroidism Current visit: No Status: Chronic Category: Medical Code(s): E03.9 - Hypothyroidism, unspecified (4) Osteoporosis Current visit: No Status: Chronic Category: Medical Code(s): M81.0 - Age- related osteoporosis without current pathological fracture (5) Vitamin D deficiency Current visit: No Status: Chronic Category: Medical Code(s): E55.9 - Vitamin D deficiency, unspecified (6) Depression Current visit: Yes Status: Acute Category: Medical Code(s): F32.9 - Major depressive disorder, single episode, unspecified (7) Paranoid behavior Current visit: Yes Status: Acute Category: Medical Code(s): F22 - Delusional disorders - Assessment and plan all Dx Assessment and Plan for all problems:: We will continue her home meds, I will start her on Zoloft 50 mg daily for her moderate depression with paranoia.
--- NOTE | 2018-11-02 13:34 | Progress Note ---
Subjective Date: 11/02/18 Time: 12:00 Principal diagnosis: s/p ORIF R calcaneus fx Interval history: The patient is status post ORIF right calcaneal fracture, POD 2. She says she is doing well this morning and her pain is well controlled with medication. She has been elevating the RLE on pillows overnight and got up with therapy this morning. She apparently scooted on her backside to go to the bathroom last night. When asked about this, she says she did not have any walker yesterday and she further mentioned that she did not put any weight on her operated limb when she did that. She now has a walker in the room and says she is mobilizing with the walker nonweightbearing on the right lower extremity. No history of any fevers, chills or rigors. No history of any distal tingling or numbness. She is eating and drinking well. She lives alone and plans are underway to discharge her to a prison facility for rehab. PN: Obj Ex Vital signs: Temp Pulse Resp BP Pulse Ox 98.1 F 78 15 127/70 95 11/02/18 11:54 11/02/18 11:54 11/02/18 11:54 11/02/18 11:54 11/02/18 11:54 - Constitutional no acute distress - Routine HEENT Exam Head: Present: normocephalic Eye: Present: EOMI ENT: Present: mucous membranes moist - Routine Neck Exam Present: supple, full ROM - Routine Respiratory Exam Present: CTA bilaterally. Absent: respiratory distress - Routine Cardiovascular Exam Present: RRR, Normal S1, Normal S2 - Routine Abdominal Exam Present: soft, normoactive bowel sounds - Routine Extremities Exam Comments: On examination of her right lower extremity, she is in a short leg posterior splint. There is no discharge or strikethrough through the bandages. Her foot is elevated on 2 pillows. The toes are pink with brisk capillary refill and she is actively moving them. Sensation is intact to light touch throughout. No signs of compartment syndrome noted. - Routine Skin Exam Present: warm, normal turgor - Routine Neurological Exam Present: alert, oriented X3, normal tone - Routine Psychiatric Exam Present: normal affect, cooperative Progress Note: A&P (1) Calcaneus fracture, right Status: Acute Current Visit: Yes (2) Hyperlipidemia Status: Chronic Current Visit: No (3) Hypothyroidism Status: Chronic Current Visit: No (4) Osteoporosis Status: Chronic Current Visit: No (5) Vitamin D deficiency Status: Chronic Current Visit: No (6) Depression Status: Acute Current Visit: Yes (7) Paranoid behavior Status: Acute Current Visit: Yes Assessment and Plan for All Diagnoses:: I have reviewed the findings and progress with the patient. I have strongly recommended her not to mobilize on her bottom and to continue to be strictly nonweightbearing on the right foot/lower extremity. She can mobilize nonweightbearing on the right side with a walker as comfortable. I have also advised her to continue elevation of the right foot and ankle on couple of pillows to reduce the swelling. Continue as needed pain medication. I understand that a bed is available at a local custodial for her to be discharged to, but we are still waiting on approval from her insurance. From an orthopedic standpoint, patient is ready to be discharged to a prison facility when appropriate paperwork is completed. Follow-up in my office in 1 to 2 days for wound check.
--- NOTE | 2018-11-03 11:34 | Progress Note ---
Subjective Date: 11/03/18 Time: 11:00 Principal diagnosis: s/p ORIF R calcaneus fx Interval history: The patient is status post ORIF right calcaneal fracture, POD 3. She says she is doing well this morning and her pain is well controlled with medication. She says she has been elevating the RLE on a couple of pillows. She also mentioned that she is mobilizing with a walker nonweightbearing on the right side. No history of any fevers, chills or rigors. No history of any distal tingling or numbness. She is eating and drinking well. She lives alone and care management is working on plans to discharge her to a shelter facility for rehab. PN: Obj Ex Vital signs: Temp Pulse Resp BP Pulse Ox 98.1 F 90 18 151/75 H 96 11/03/18 08:00 11/03/18 08:00 11/03/18 08:00 11/03/18 08:00 11/03/18 08:00 Narrative: Exam General appearance: alert, active, awake, no acute distress Cardiovascular: regular rate & rhythm, normal peripheral pulses Respiratory: No respiratory distress noted, speaks in full sentences ABD: soft and non tender Neuro: alert, awake, oriented x 3 On examination of her right lower extremity, she is in a short leg posterior splint. There is no discharge or strikethrough through the bandages. I have removed the splint and change the dressings. The incision looks healthy and clean. There is no discharge. There is a mild surrounding erythema. She has a fairly large blister lateral to the Achilles tendon. I have drained this with a sterile needle. Clear serous fluid was drained and it did not look infected. Sterile dressings and posterior and sugar tongs splint reapplied. The toes are pink with brisk capillary refill and she is actively moving them. Sensation is intact to light touch throughout. No signs of compartment syndrome noted. Thigh and calf are soft and nontender. Progress Note: A&P (1) Calcaneus fracture, right Status: Acute Current Visit: Yes (2) Hyperlipidemia Status: Chronic Current Visit: No (3) Hypothyroidism Status: Chronic Current Visit: No (4) Osteoporosis Status: Chronic Current Visit: No (5) Vitamin D deficiency Status: Chronic Current Visit: No (6) Depression Status: Acute Current Visit: Yes (7) Paranoid behavior Status: Acute Current Visit: Yes Assessment and Plan for All Diagnoses:: I have reviewed the findings and progress with the patient. I have again recommended her to be strictly nonweightbearing on the right foot/lower extremity. She can mobilize nonweightbearing on the right side with a walker as comfortable. I have also advised her to continue elevation of the right foot and ankle on couple of pillows to reduce the swelling. Continue as needed pain medication. We are still waiting on approval from her insurance provider for her to be discharged to a shelter facility for rehab. From an orthopedic standpoint, patient is ready to be discharged to a shelter facility when appropriate paperwork is completed. Follow-up in my office in [address] Max for wound check/suture removal.
--- NOTE | 2018-11-04 14:49 | Discharge Summary ---
General - General Admission date:: 10/31/18 Discharge date: 11/04/18 HPI HPI: 68yo F with a chief complaint of R foot pain that presented to the [facility] [place] [place] earlier today. She began as an orthopedic consult but was taken to the operating room urgently and is now being admitted under me for ongoing post-operative care. She reports feeling a pop in the R heel while she was walking on Thursday; she is not sure where she was but thinks she was taking groceries into the house from the car. She is a somewhat poor historian and occasionally becomes confused. She presented to the [facility] with her landlord, who has only known her around 6 months. She lives alone and does not have family she speaks with; she never and has no children. On Thursday, when her foot popped, she had immediate pain but continued to hobble around the house on it. Since then, the foot has become increasingly swollen and bruised, and two large blisters developed on her heel. She reports a history of thyroid issues and takes levothyroxine. She believes she also takes a cholesterol pill and something for her bones, but she isn't sure what they are. She also may or may not have been on a beta carlo, but this ran out and she stopped taking them. I evaluated the patient in [facility] and observed severe swelling of the hindfoot with diffuse ecchymosis and two large blisters, one filled with serous fluid, the other with blood. There was not yet skin necrosis, but the tissue overlying the fracture site was dusky. XR revealed a tongue-type calcaneus fracture. This luckily had not resulted in an open wound yet, but within 24 hours it would have if surgery not performed urgently. I recommended ORIF immediately. After discussing the risks and benefits of both surgical and non-surgical treatment, the patient elected to undergo surgery and provided informed consent. She was t aken to the OR where surgery was performed without complication; see operative note for more detail. Objective Vital signs: Temp Pulse Resp BP Pulse Ox 98.9 F 87 17 133/77 95 11/04/18 07:25 11/04/18 07:25 11/04/18 07:25 11/04/18 07:25 11/04/18 07:56 DS: Diagnosis - Discharge Diagnosis (1) Calcaneus fracture, right Status: Acute (2) Hyperlipidemia Status: Chronic (3) Hypothyroidism Status: Chronic (4) Osteoporosis Status: Chronic (5) Vitamin D deficiency Status: Chronic (6) Depression Status: Acute (7) Paranoid behavior Status: Acute Discharge Plan - Patient Discharge Instructions ACTIVITY: Up with assistance DIET: continue same diet Additional Instructions: -- strict non-weightbearing RLE, elevate on 2-3 pillows as much as possible -- do not remove splint -- pain medication prescription given -- follow-up in [facility] orthopedic clinic; date/time to be given at discharge Patient Instructions: DI for Surgical Site Infection, Surgical Site Infection, DI for Calcaneus Fracture - Follow up Plan Follow up with: Willy West MD [Staff Physician] - 11/10/18 2:15 pm Disposition: Home Health Service Home Medications: Home Medications Medication Instructions Recorded Confirmed Type ergocalciferol (vitamin D2) 50,000 50,000 unit PO WEEKLY cap 07/27/17 11/01/18 History unit capsule Alendronate Sodium [Fosamax 70mg 70 mg PO WEEKLY 05/13/18 10/31/18 History Tablet] Calcium Carbonate/Vitamin D3 1 cap PO DAILY 05/13/18 10/31/18 History [Calcium 600 + Vit D Softgel] Atorvastatin Calcium [Atorvastatin 10 mg PO HS 11/01/18 11/01/18 History 10mg Tab] Levothyroxine Sodium 25 mcg PO DAILY 11/01/18 11/01/18 History [Levothyroxine 25mcg (0.025mg) Tab] Sertraline HCl [Zoloft 50mg tablet] 50 mg PO DAILY #30 tab 11/02/18 Rx Oxycodone HCl/Acetaminophen 1 each PO Q6HP PRN #30 tab 11/04/18 Rx [Percocet 5/325mg tablet] Prescriptions/Medication Reconciliation: New Sertraline HCl [Zoloft 50mg tablet] 50 mg PO DAILY #30 tab Oxycodone HCl/Acetaminophen [Percocet 5/325mg tablet] 1 each PO Q6HP PRN #30 tab PRN Reason: Moderate To Severe Pain Continued ergocalciferol (vitamin D2) 50,000 unit capsule 50,000 unit PO WEEKLY cap Calcium Carbonate/Vitamin D3 [Calcium 600 + Vit D Softgel] 1 cap PO DAILY Alendronate Sodium [Fosamax 70mg Tablet] 70 mg PO WEEKLY Atorvastatin Calcium [Atorvastatin 10mg Tab] 10 mg PO HS Levothyroxine Sodium [Levothyroxine 25mcg (0.025mg) Tab] 25 mcg PO DAILY
== END 2018-11-04 17:00 | disposition home health service (06) ==
LOC: 2ND 11:50 → UTC 11:50 → 2ND 14:18
PROVIDERS: ADMIT Orthopaedic Surgery; ATTEND Orthopaedic Surgery
DX: Z82.3 Family history of stroke; F32.9 Major depressive disorder, single episode, unspecified; Z91.14 Patient's other noncompliance with medication regimen; X58.XXXA Exposure to other specified factors, initial encounter; Z87.891 Personal history of nicotine dependence; Y93.01 Activity, walking, marching and hiking; S92.001A Unspecified fracture of right calcaneus, initial encounter for closed fracture; F22 Delusional disorders; Z83.49 Family history of other endocrine, nutritional and metabolic diseases; Z82.49 Family history of ischemic heart disease and other diseases of the circulatory system; Z80.9 Family history of malignant neoplasm, unspecified; Z79.890 Hormone replacement therapy; M81.0 Age-related osteoporosis without current pathological fracture; E03.9 Hypothyroidism, unspecified; Z79.899 Other long term (current) drug therapy
CPT/HCPCS: 36415; 73610; 73630; 73650; 76000; 80053; 82652; 84439; 84443; 85025; 97116; 97161; 97166; 97530; 97535; 99203; C1713; G0378; J2405

== ENCOUNTER 2018-11-10 14:47 | Inpatient (IN) ==
[2018-11-10 18:17] LABS: Basophils % 0.4 % (0.1-2.0); Eosinophils # 0.1 K/mm3 (0.0-0.4); Eosinophils % 1.7 % (0.1-12.0); Hematocrit 38.3 % (37.0-47.0); Hemoglobin 12.2 g/dL (12.2-16.2); Lymphocytes # 1.1 K/mm3 (0.7-4.5); Lymphocytes % 22.1 % (10-50); Mean Corpuscular HGB Conc 31.7 g/dL (31.8-35.4); Mean Corpuscular Volume 94.1 fl (81-99); Mean Platelet Volume 6.8 fl (7.4-10.4); Monocytes # 0.2 K/mm3 (0.1-1.0); Monocytes % 4.5 % (1.7-9.3); Neutrophils # 3.4 K/mm3 (1.8-7.8); Neutrophils % 71.3 % (37.0-80.0); Platelet Count 339 K/mm3 (142-424); Red Blood Count 4.07 M/mm3 (4.20-5.40); Red Cell Distribution Width 13.5 % (11.5-17.5); White Blood Count 4.8 K/mm3 (4.8-10.8)
[2018-11-10 18:28] LABS: INR 0.97 (0.9-1.1); Prothrombin Time 10.1 seconds (9.4-11.8)
[2018-11-10 18:31] LABS: Albumin Level 3.3 gm/dL (3.4-5.0); Albumin/Globulin Ratio 0.9 (1.1-1.8); Anion Gap 12.5 mEq/L (5-15); Bilirubin,Total 0.4 mg/dL (0.2-1.0); Calcium 8.9 mg/dL (8.5-10.1); Globulin 3.5 gm/dl (1.3-3.2); Total Protein,Serum 6.8 gm/dL (6.4-8.2)
--- NOTE | 2018-11-10 22:19 | Consult Report ---
*Admission Date: 11/10/18 *Reason for consult:: medical clearance *History of present illness: this wf is having rt calcaneous surg in am - pt has had prev recent surg -8yo F with a chief complaint of R foot pain that presented to the [facility] [place] earlier today. She began as an orthopedic consult but was taken to the operating room urgently and is now being admitted under me for ongoing post-operative care. She reports feeling a pop in the R heel while she was walking on Thursday; she is not sure where she was but thinks she was taking groceries into the house from the car. She is a somewhat poor historian and occasionally becomes confused. She presented to the [facility] with her landlord, who has only known her around 6 months. She lives alone and does not have family she speaks with; she never and has no children. On Thursday, when her foot popped, she had immediate pain but continued to hobble around the house on it. Since then, the foot has become increasingly swollen and bruised, and two large blisters developed on her heel. She reports a history of thyroid issues and takes levothyroxine. She believes she also takes a cholesterol pill and something for her bones, but she isn't sure what they are. She also may or may not have been on a beta carlo, but this ran out and she stopped taking them. I evaluated the patient in [facility] and observed severe swelling of the hindfoot with diffuse ecchymosis and two large blisters, one filled with serous fluid, the other with blood. There was not yet skin necrosis, but the tissue overlying the fracture site was dusky. XR revealed a tongue-type calcaneus fracture. This luckily had not resulted in an open wound yet, but within 24 hours it would have if surgery not performed urgently. I recommended ORIF immediately. After discussing the risks and benefits of both surgical and non-surgical treatment, the patient elected to undergo surgery and provided informed consent. She was taken to the OR where surgery was performed without complication; see operative note for more detail. pt was seen by dr soto at that time and her note was reviewed - pt with need for surg in am and had neg stress test in 08/12 and has no htn or chf - [facility] History I have reviewed the patient's past medical history: Yes Medical History: Reports:: Hyperlipidemia, Osteoporosis Denies:: Cancer, Diabetes Mellitus Type 1, Diabetes Mellitus Type 2, Internal Pacemaker, MRSA, Seizures *Have you ever received a pneumonia vaccine?: No *Have you received a flu vaccine this season?: No Other Medical History: Reports: Hypothyroidism, Osteoporosis Laterality Cases: Bilateral: Tonsillectomy Other Surgeries: Yes: Other (tonsilectomy). No: Pacemaker Amputation: No Fractures: No - *Social History Smoking Status: Former smoker Alcohol Intake: never Substance Use Type: denies use *Occupational Status:: retired Housing: other Household Members: other *Travel in the last 8 weeks: None Family Hx:: Thyroid Disorder, Cancer, Heart Attack, Stroke Review of Systems - Review of Systems Review of systems:: pertinent systems reviewed and negative unless documented below - Constitutional Denies fever(s) - Eyes Denies change in vision - ENT Denies sore throat - *Cardiovascular Denies chest pain at rest - *Respiratory Denies cough, Denies shortness of breath - *Gastrointestinal Denies abdominal pain - *Genitourinary Denies blood in urine - *Musculoskeletal Reports joint pain, Reports limited joint movement, Reports other (rt lower leg in splint ) - Integumentary/Breasts Denies rash - *Neurologic Denies seizure-like activity - Psychiatric Denies anxiety - Endocrine Reports other (hx of hypothyroidism ) Meds Home Medications Medication Instructions Recorded Confirmed Type ergocalciferol (vitamin D2) 50,000 50,000 unit PO WEEKLY cap 07/27/17 11/10/18 History unit capsule Calcium Carbonate/Vitamin D3 1 cap PO DAILY 05/13/18 11/10/18 History [Calcium 600 + Vit D Softgel] Atorvastatin Calcium [Atorvastatin 10 mg PO HS 11/01/18 11/10/18 History 10mg Tab] Levothyroxine Sodium 25 mcg PO DAILY 11/01/18 11/10/18 History [Levothyroxine 25mcg (0.025mg) Tab] Oxycodone HCl/Acetaminophen 1 each PO Q6HP PRN #30 tab 11/04/18 11/10/18 Rx [Percocet 5/325mg tablet] alendronate 70 mg tablet 70 mg PO WEEKLY #14 tab 11/09/18 11/10/18 Rx Sertraline HCl [Zoloft 50mg tablet] 50 mg PO DAILY #30 tab 11/10/18 11/10/18 Rx cephALEXin [cephALEXin 500mg 1,000 mg PO Q12H 7 Days cap 11/10/18 11/10/18 Rx capsule] Allergies Allergy/AdvReac Type Severity Reaction Status Date / Time No Known Allergies Allergy Verified 11/10/18 15:33 Exam Vital signs and Labs for Last 24 Hours: Temp Pulse Resp BP Pulse Ox 98.2 F 85 20 137/77 97 11/10/18 20:00 11/10/18 20:00 11/10/18 20:00 11/10/18 20:00 11/10/18 20:00 Laboratory Results - last 24 hr 11/10/18 18:00: WBC 4.8, RBC 4.07 L, Hgb 12.2, Hct 38.3, MCV 94.1, MCH 29.9, MCHC 31.7 L, RDW 13.5, Plt Count 339, MPV 6.8 L, Neut % (Auto) 71.3, Lymph % (Auto) 22.1, Zavala % (Auto) 4.5, Eos % (Auto) 1.7, Baso % (Auto) 0.4, Neut # (Auto) 3.4, Lymph # (Auto) 1.1, Zavala # (Auto) 0.2, Eos # (Auto) 0.1, Baso # (Aut o) 0.0 11/10/18 18:00: PT 10.1, INR 0.97, APTT 25.0 11/10/18 18:00: Sodium 142, Potassium 3.5, Chloride 106, Carbon Dioxide 27, Anion Gap 12.5, BUN 8, Creatinine 0.75, Estimated Creat Clear 50, Estimated GFR 77, Est GFR ( Amer) 93, Glucose 141 H, Calcium 8.9, Total Bilirubin 0.4, AST 13 L, ALT 20, Alkaline Phosphatase 66, Total Protein 6.8, Albumin 3.3 L, Globulin 3.5 H, Albumin/Globulin Ratio 0.9 L I & O for Last 24 hours: Intake & Output 11/08/18 11/09/18 11/10/18 11/11/18 11:59 11:59 11:59 11:59 Intake Total 240 / 240 Output Total 475 / 475 Balance -235 / -235 Weight 127 lb 1 oz - Constitutional no acute distress, average body habitus - *Routine HEENT Exam Head: Present: normocephalic Eye: Present: EOMI, PERRL ENT: Present: mucous membranes dry - *Routine Neck Exam Present: supple. Absent: JVD - *Routine Respiratory Exam Present: CTA bilaterally - *Routine Cardiovascular Exam Present: RRR, murmur - *Routine Abdominal Exam Present: soft - *Routine Extremities Exam Comments: splint rt lower leg - *Routine Skin Exam Present: intact - *Routine Neurological Exam Present: alert, oriented X3, CN II-XII intact - Routine Psychiatric Exam Present: normal affect Internal Medicine - CN: Reslt - Labs CBC & Chem 7: 11/10/18 18:00 11/10/18 18:00 Labs: Short CBC 11/10/18 Range/Units 18:00 WBC 4.8 (4.8-10.8) K/mm3 Hgb 12.2 (12.2-16.2) g/dL Hct 38.3 (37.0-47.0) % Plt Count 339 (142-424) K/mm3 BMP 11/10/18 18:00 Sodium 142 Potassium 3.5 Chloride 106 Carbon Dioxide 27 BUN 8 Creatinine 0.75 Glucose 141 H Calcium 8.9 Liver Function 11/10/18 Range/Units 18:00 Total Bilirubin 0.4 (0.2-1.0) mg/dL AST 13 L (15-37) U/L ALT 20 (12-78) U/L Alkaline Phosphatase 66 (46-116) U/L Albumin 3.3 L (3.4-5.0) gm/dL Assessment and Plan (1) Failed fixation of fracture Current visit: Yes Status: Acute Category: Medical (2) Calcaneus fracture, right Current visit: No Status: Acute Qualifiers: Encounter type: subsequent encounter Calcaneus location: unspecified portion of calcaneus Fracture type: closed Fracture alignment: displaced Fracture healing: with delayed healing Qualified Code(s): S92.001G - Unspecified fracture of right calcaneus, subsequent encounter for fracture with delayed healing Category: Surgical Code(s): S92.001A - Unspecified fracture of right calcaneus , initial encounter for closed fracture (3) Hyperlipidemia Current visit: Yes Status: Acute Category: Medical Code(s): E78.5 - Hyperlipidemia, unspecified (4) Hypothyroidism Current visit: No Status: Chronic Category: Medical Code(s): E03.9 - Hypothyroidism, unspecified
--- NOTE | 2018-11-10 22:55 | History & Physical Report ---
*Admission Date: 11/10/18 *Chief complaint: failure of R calcaneus ORIF *History of present illness: 68-year-old female who was admitted earlier this afternoon from my office. She presented today for routine postoperative follow-up after undergoing open reduction internal fixation of a right calcaneus fracture on 10/31/2018. She had presented earlier that day (10/31/18) to the [facility] for foot pain and found to have a tongue type calcaneus fracture with impending soft tissue compromise and conversion to an open fracture. She had severe swelling and ecchymosis of the heel with 2 very large blood-filled blisters. Surgery was performed that afternoon and the fracture successfully reduced and fixed with 2 bicortical screws. I was satisfied with the fixation and instructed the patient to remain strictly nonweightbearing on this leg. Concern was expressed by myself and physical therapy regarding her ability to safely return home. However, her insurance denied coverage for SNF placement and she was unable to afford payment [id number]. I completed an extensive peer to peer review with an [facility] physician and explained the seriousness of her injury, her soft tissue damage, and the need for strict nonweightbearing with physical therapy and wound care; the request was still denied. The patient was forced to return to her home with home health. Home health notes were received today with the patient and it is noted that they believe the patient to be a poor historian and confused regarding her medications; it was documented that she was not taking her antibiotics or pain medication as prescribed due to confusion. She was suspicious that the home health nurse was trying to overdose her on her antibiotics. It should also be noted that during her hospitalization after surgery last week, the patient was noted to have independently gotten out of bed, put a blanket on the floor, and scoot to the bathroom on her buttocks. Her home physical therapy notes state the patient was considered a high fall risk and will require considerable assistance for ambulation. When she presented to my clinic today she had no complaints but on reviewing her x-ray I immediately noticed that the fracture reduction had been lost. When I asked the patient if she has been walking on her ankle she said that she was "trying not to." On further questioning the patient admits that she has stumbled while trying to get up from her wheelchair and place weight on her ankle several times. I also s uspect she has been walking on this frequently when unsupervised. She is an extremely poor historian and is frequently confused. She became very tearful and reported fear about admission to the hospital due to the presence of bed alarms at her last visit that scared her. She was accompanied by her two sisters today in clinic and they both state that for many years she has been "not right." They are concerned about their ability to watch her 24 hours a day at home and to prevent her from walking on her foot again in the future. She was admitted from clinic with plans to revise her ORIF in the morning. [facility] History I have reviewed the patient's past medical history: Yes Medical History: Reports:: Hyperlipidemia, Osteoporosis Denies:: Cancer, Diabetes Mellitus Type 1, Diabetes Mellitus Type 2, Internal Pacemaker, MRSA, Seizures *Have you ever received a pneumonia vaccine?: No *Have you received a flu vaccine this season?: No Other Medical History: Reports: Hypothyroidism, Osteoporosis Laterality Cases: Bilateral: Tonsillectomy Other Surgeries: Yes: Other (tonsilectomy). No: Pacemaker Amputation: No Fractures: Yes (ORIF R calcaneus 10/31/18) - *Social History Smoking Status: Former smoker Alcohol Intake: never Substance Use Type: denies use *Occupational Status:: retired Housing: other Household Members: other *Travel in the last 8 weeks: None Family Hx:: Thyroid Disorder, Cancer, Heart Attack, Stroke Review of Systems - Review of Systems Review of systems:: pertinent systems reviewed and negative unless documented below Meds Home Medications Medication Instructions Recorded Confirmed Type ergocalciferol (vitamin D2) 50,000 50,000 unit PO WEEKLY cap 07/27/17 11/10/18 History unit capsule Calcium Carbonate/Vitamin D3 1 cap PO DAILY 05/13/18 11/10/18 History [Calcium 600 + Vit D Softgel] Atorvastatin Calcium [Atorvastatin 10 mg PO HS 11/01/18 11/10/18 History 10mg Tab] Levothyroxine Sodium 25 mcg PO DAILY 11/01/18 11/10/18 History [Levothyroxine 25mcg (0.025mg) Tab] Oxycodone HCl/Acetaminophen 1 each PO Q6HP PRN #30 tab 11/04/18 11/10/18 Rx [Percocet 5/325mg tablet] alendronate 70 mg tablet 70 mg PO WEEKLY #14 tab 11/09/18 11/10/18 Rx Sertraline HCl [Zoloft 50mg tablet] 50 mg PO DAILY #30 tab 11/10/18 11/10/18 Rx cephALEXin [cephALEXin 500mg 1,000 mg PO Q12H 7 Days cap 11/10/18 11/10/18 Rx capsule] Allergies Allergy/AdvReac Type Severity Reaction Status Date / Time No Known Allergies Allergy Verified 11/10/18 15:33 Exam Vital signs and Labs for Last 24 Hours: Temp Pulse Resp BP Pulse Ox 98.2 F 85 20 137/77 97 11/10/18 20:00 11/10/18 20:00 11/10/18 20:00 11/10/18 20:00 11/10/18 20:00 Laboratory Results - last 24 hr 11/10/18 18:00: WBC 4.8, RBC 4.07 L, Hgb 12.2, Hct 38.3, MCV 94.1, MCH 29.9, MCHC 31.7 L, RDW 13.5, Plt Count 339, MPV 6.8 L, Neut % (Auto) 71.3, Lymph % (Auto) 22.1, Swain % (Auto) 4.5, Eos % (Auto) 1.7, Baso % (Auto) 0.4, Neut # (Auto) 3.4, Lymph # (Auto) 1.1, Swain # (Auto) 0.2, Eos # (Auto) 0.1, Baso # (Auto) 0.0 11/10/18 18:00: PT 10.1, INR 0.97, APTT 25.0 11/10/18 18:00: Sodium 142, Potassium 3.5, Chloride 106, Carbon Dioxide 27, Anion Gap 12.5, BUN 8, Creatinine 0.75, Estimated Creat Clear 50, Estimated GFR 77, Est GFR ( Amer) 93, Glucose 141 H, Calcium 8.9, Total Bilirubin 0.4, AST 13 L, ALT 20, Alkaline Phosphatase 66, Total Protein 6.8, Albumin 3.3 L, Globulin 3.5 H, Albumin/Globulin Ratio 0.9 L I & O for Last 24 hours: Intake & Output 11/08/18 11/09/18 11/10/18 11/11/18 11:59 11:59 11:59 11:59 Intake Total 240 / 240 Output Total 475 / 475 Balance -235 / -235 Weight 127 lb 1 oz - *Routine HEENT Exam Head: Present: normocephalic Eye: Present: EOMI ENT: Present: mucous membranes moist - *Routine Respiratory Exam Present: CTA bilaterally - *Routine Cardiovascular Exam Present: RRR - *Routine Abdominal Exam Present: soft. Absent: tenderness - *Routine Extremities Exam Comments: soft tissue swelling R ankle/foot improving since surgery, but significant ecchymosis still persists no evidence of infection R heel SILT distally RLE in all distributions palpable pedal pulses RLE, foot warm +DF, PF, EHL RLE moderate tenderness over R calcaneus no skin tenting, necrosis or open wounds R calf soft, non-tender - *Routine Skin Exam Present: wounds, ecchymosis - *Routine Neurological Exam Present: moving all extremities, normal tone. Absent: sensory deficit - Routine Psychiatric Exam Present: anxious, agitated H&P: Result - Impressions X-ray R foot shows loss of reduction of tongue-type calcaneus fracture; proximal fragment pulled superiorly, with screw pullout Assessment and Plan (1) Calcaneus fracture, right Current visit: No Status: Acute Category: Medical Code(s): S92.001A - Unspecified fracture of right calcaneus, initial encounter for closed fracture (2) Failed fixation of fracture Current visit: Yes Status: Acute Category: Medical - Assessment and plan all Dx Assessment and Plan for all problems:: 68yo F POD 10 s/p ORIF R calcaneus fx; despite being instructed to remain strictly NWB RLE, the patient has been walking on the foot at home and reduction/fixation has failed -- admit for revision surgery tomorrow morning -- NPO after midnight -- christoph-op antbx on hold to OR -- bed rest tonight -- SCD LLE -- Dr. Yost on consult
--- NOTE | 2018-11-11 07:24 | Pharmacy Consult Notes ---
[facility] Pharmacy VTE Monitoring - Patient Demographics Admission date: 11/10/18 Report Date: 11/11/18 Time: 07:24 Allergies/Adverse Reactions: Patient Allergies No Known Allergies Allergy (Verified 11/10/18 15:33) Height: 1.65 m Weight: 58.145 kg Patient Problems: Current Active Problems (Updated 11/11/18 @ 01:43 by Bret Yost MD) Failed fixation of fracture (Acute) Hyperlipidemia (Acute) - VTE Risk Labs: VTE Related Lab Results Hgb 12.2 g/dL (12.2-16.2) 11/10/18 18:00 Hct 38.3 % (37.0-47.0) 11/10/18 18:00 Plt Count 339 K/mm3 (142-424) 11/10/18 18:00 PT 10.1 seconds (9.4-11.8) 11/10/18 18:00 INR 0.97 (0.9-1.1) 11/10/18 18:00 APTT 25.0 seconds (23.6-34.0) 11/10/18 18:00 BUN 8 mg/dL (7-18) 11/10/18 18:00 Creatinine 0.75 mg/dL (0.55-1.02) 11/10/18 18:00 Estimated Creat Clear 50 mL/min (50-200) 11/10/18 18:00 Was VTE Risk Assessment Performed: Yes VTE Score: 5 VTE Risk Level: Low Risk - Prophylaxis VTE Prophylaxis Ordered?: Yes Types of VTE Prophylaxis: TEDS Knee High Location of Applied Device: Left Leg - VTE Diagnosis Confirmed Treatment or plan recommended: Continue Current Treatment
--- NOTE | 2018-11-11 10:31 | Progress Note ---
[facility] Anesthesia Checklist - Patient Identification Patient Identification: Arm Band, Verbal (Name & ) - Structural Data Admitted From: Inpatient Planned Operative Procedure/s: orif calcaneus Consent for Planned Operative Procedure(s) Verified: Yes Verified Documents: History and Physical - NPO Status Verified Time NPO: 00:00 - Additional verifications Patient : No Anesthesia Reactions: No Hx Blood Transfusions: No Blood Transfusion Reaction: No Cephalosporin Allergy: No Previous Colonoscopy: No - Cardiovascular Assessment Heart Sounds: S1 & S2 Pulse Strength: Baseline Pulse Rhythm: Regular Peripheral Edema: No - Airway Assessment C-Spine Mobility Assessed: Yes TMJ Mobility Assessed: Yes Dentition: Good Dentition - Neurological Assessment Level of Consciousness: Awake, Alert, Appropriate Hx Seizures: No Numbness or tingling in extremities: No - Anesthesia Plan Anesthesia Risk discussed: Yes Anesthesia Plan: Verified ASA Class: II Anesthesia Type: General [facility] History I have reviewed the patient's past medical history: Yes Medical History: Reports:: Hyperlipidemia, Osteoporosis Denies:: Cancer, Diabetes Mellitus Type 1, Diabetes Mellitus Type 2, Internal Pacemaker, MRSA, Seizures *Have you ever received a pneumonia vaccine?: No *Have you received a flu vaccine this season?: No Other Medical History: Reports: Hypothyroidism, Osteoporosis Laterality Cases: Bilateral: Tonsillectomy Other Surgeries: Yes: Other (tonsilectomy). No: Pacemaker Amputation: No Fractures: Yes (ORIF R calcaneus 10/31/18) - *Social History Smoking Status: Former smoker Alcohol Intake: never Substance Use Type: denies use *Occupational Status:: retired Housing: other Household Members: other *Travel in the last 8 weeks: None Family Hx:: Thyroid Disorder, Cancer, Heart Attack, Stroke
--- NOTE | 2018-11-11 10:33 | Progress Note ---
[facility] Anesthesia Record Part I Intake, IV Amount: 900 Estimated blood loss (mL): 10 Urine output (mL): 450 Blood Products used (#): none Blood Pressure: 100/54 SaO2: 97 Pulse Rate: 105 Respiratory Rate: 20 Temperature: 97.9 F Patient is:: Awake, Stable Stable to PACU at:: 10:24
--- NOTE | 2018-11-11 10:34 | Progress Note ---
[facility] Anesthesia Record Part II Discharge Time: 10:54 Destination: Medical Surgical Department PACU nurse assessment reviewed?: Yes Patient Condition:: Good Anesthesia Complications:: None Swallowing reflex intact?: Yes Cyanosis?: No
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
--- NOTE | 2018-11-11 21:21 | Progress Note ---
Internal Medicine - PN: Subj *Date: 11/12/18 *Time: 07:17 Interval history: pt doing ok but confused and possible depressed -will ask for josé luis vuong and dr fine agrees - Exam Vital signs and Labs for Last 24 Hours: Temp Pulse Resp BP Pulse Ox 98.9 F 103 H 18 144/74 H 96 11/11/18 20:00 11/11/18 20:00 11/11/18 20:00 11/11/18 20:00 11/11/18 20:00 Laboratory Results - last 24 hr 11/11/18 07:50: Urine Color Yellow, Urine Appearance Clear, Urine pH 7.5, Ur Specific [place] 1.010, Urine Protein Negative, Urine Glucose (UA) Negative, Urine Ketones Negative, Urine Blood 2+, Urine Nitrate Negative, Urine Bilirubin Negative, Urine Urobilinogen 0.2, Ur Leukocyte Esterase Negative, Urine RBC 5- 10, Urine WBC Occasional, Ur Squamous Epith Cells Occasional, Urine Bacteria Trace I & O for Last 24 hours: Intake & Output 11/09/18 11/10/18 11/11/18 11/12/18 11:59 11:59 11:59 11:59 Intake Total 2938 / 2938 420 / 420 Output Total 1225 / 1225 700 / 700 Balance 1713 / 1713 -280 / -280 Weight 129 lb 6 oz Microbiology Reports for the Last 24 Hours: Microbiology 11/11/18 08:55 Ankle,Right Gram Stain - Final - Constitutional no acute distress - *Routine HEENT Exam Head: Present: normocephalic Eye: Present: EOMI, PERRL ENT: Present: mucous membranes dry - *Routine Neck Exam Present: supple - *Routine Respiratory Exam Present: CTA bilaterally - *Routine Cardiovascular Exam Present: RRR, murmur - *Routine Abdominal Exam Present: soft - *Routine Extremities Exam Comments: s/p surg lower ext - *Routine Skin Exam Present: intact - *Routine Neurological Exam Present: alert, CN II-XII intact - Routine Psychiatric Exam Present: normal affect Assessment and Plan (1) Failed fixation of fracture Current visit: Yes Status: Acute Category: Medical (2) Calcaneus fracture, right Current visit: No Status: Acute Qualifiers: Encounter type: subsequent encounter Calcaneus location: unspecified portio n of calcaneus Fracture type: closed Fracture alignment: displaced Fracture healing: with delayed healing Qualified Code(s): S92.001G - Unspecified fracture of right calcaneus, subsequent encounter for fracture with delayed healing Category: Surgical Code(s): S92.001A - Unspecified fracture of right calcaneus, initial encounter for closed fracture (3) Hyperlipidemia Current visit: Yes Status: Acute Category: Medical Code(s): E78.5 - Hyperlipidemia, unspecified (4) Hypothyroidism Current visit: No Status: Chronic Category: Medical Code(s): E03.9 - Hypothyroidism, unspecified (5) Depression Current visit: No Status: Acute Qualifiers: Depression Type: major depressive disorder Major depression recurrence: unspecified whether recurrent Active/Remission status: currently active Major depression episode severity: moderate Qualified Code(s): F32.1 - Major depressive disorder, single episode, moderate Category: Medical Code(s): F32.9 - Major depressive disorder, single episode, unspecified
[2018-11-11 22:01] LABS: Thyroid Stimulating Hormone 1.35 uIU/ml (0.358-3.740)
--- NOTE | 2018-11-11 22:30 | Operative Note ---
Date of procedure: 11/11/18 Pre-op Diagnosis:: failure of fixation s/p ORIF R calcaneus fracture Post-op Diagnosis:: failure of fixation s/p ORIF R calcaneus fracture Procedure performed:: R partial calcanectomy + Achilles repair Surgeon:: Jena Max MD Structural Engineering Drafting Officer(s):: Jennifer Hayden DPM X RAY TECHNICIAN:: Ren Felder Anesthesia: GETA, local Estimated blood loss (mL): 10 Clinical Note:: 68-year-old female who was admitted last night from my office. She presented for routine postoperative follow-up after undergoing open reduction internal fixation of a right calcaneus fracture on 10/31/2018. She had presented earlier that day (10/31/18) to the [facility] for foot pain and found to have a tongue type calcaneus fracture with impending soft tissue compromise and conversion to an open fracture. She had severe swelling and ecchymosis of the heel with 2 very large blood-filled blisters. Surgery was performed that afternoon and the fra cture successfully reduced and fixed with 2 bicortical screws. I was satisfied with the fixation and instructed the patient to remain strictly nonweightbearing on this leg. Concern was expressed by myself and physical therapy regarding her ability to safely return home. However, her insurance denied coverage for SNF placement and she was unable to afford payment [id number]. I completed an e xtensive peer to peer review with an insurance company physician and explained the seriousness of her injury, her soft tissue damage, and the need for strict nonweightbearing with physical therapy and wound care; the request was still denied. The patient was forced to return to her home with home health. Home health notes were received today with the patient and it is noted that they believe the patient to be a poor historian and confused regarding her medications; it was documented that she was not taking her antibiotics or pain medication as prescribed due to confusion. She was suspicious that the home health nurse was trying to overdose her on her antibiotics. It should also be noted that during her hospitalization after surgery last week, the patient was noted to have independently gotten out of bed, put a blanket on the floor, and scoot to the bathroom on her buttocks. Her home physical therapy notes state the patient was considered a high fall risk and will require considerable assistance for ambulation. When she presented to my clinic today she had no complaints but on reviewing her x-ray I immediately noticed that the fracture reduction had been lost. When I asked the patient if she has been walking on her ankle she said that she was "trying not to." On further questioning the patient admits that she has stumbled while trying to get up from her wheelchair and place weight on her ankle several times. I also suspect she has been walking on this frequently when unsupervised. She is an extremely poor historian and is frequently confused. She became very tearful and reported fear about admission to the hospital due to the presence of bed alarms at her last visit that scared her. She was accompanied by her two sisters today in clinic and they both state that for many years she has been "not right." They are concerned about their ability to watch her 24 hours a day at home and to prevent her from walking on her foot again in the future. She was admitted from clinic with plans to revise her ORIF today. I discussed the risks and benefits of surgery; the patient and her family vocalized understanding and informed consent obtained. Operative findings:: comminution of calcaneus fracture fragment, failure of fixation; unable to adequately reduce/repair fracture and bone quality was poor, so partial calcanectomy performed with achilles repair Operative note:: The patient was identified in pre-operative holding and the right foot signed by myself. Informed consent was reviewed with the patient and all questions answered. She was then seen by anesthesia and the decision was made to perform general anesthesia augmented with local anesthetic at the end of the case. Patient was then taken to the OR where 1 g of Ancef was infused intravenously and general endotracheal anesthesia induced on her bed. She was then transferred to a prone position on the operating table. Nonsterile tourniquet was placed on the upper calf of the right lower extremity in the right foot and ankle prepped and draped in the usual sterile fashion. Timeout was performed, identifying the correct patient, correct procedure, and correct site. The procedure was begun by first removing her prior sutures from her previous surgery. These were removed intact and the right lower extremity exsanguinated with an Esmarch and tourniquet inflated to 250 mmHg. Hemostat was inserted into the prior incision and spread, bluntly opening the incision. All prior deep suture was removed. The Achilles tendon was retracted laterally and it can immediately be seen at the prior fixation of her tongue type calcaneus fracture had failed. Whereas the initial fixation was secure, weightbearing had caused the screws to cut out and actually split the fracture fragment. Both screws were removed intact; these were Maryam 4.0 mm cannulated fully threaded cancellous screws. Both the screws and their corresponding washers were removed intact and removal of all hardware was confirmed on C arm. There was no evidence of gross infection such as purulent or necrotic material, but there was a murky/cloudy appearance to some of the edematous tissue fluid, suspicious enough that wound cultures were taken. Re-reduction of the fracture was attempted with a large pointed reduction forceps. Bone quality was poor and it was noted that the prior proximal screw had actually split the fracture fragment 2 pieces. The smaller of these fragments was simply too small and a poor bone quality to hold adequate screw fixation. It was not felt that adequate screw purchase could be obtained at this point and that fixation of the fracture would be destined to fail. As such, the decision was made to perform a partial calcanectomy. The fracture fragment was removed intact and removal of all bone fragments confirmed on fluoroscopy. The Achilles was seen to be largely intact with only the central one third detached; the medial and lateral thirds were still attached to their distal insertion site. The central portion of the tendon was then repaired with a Aliveshoes 3.5 mm titanium suture anchor preloaded with 4 sutures. At this time and the suture anchor was not felt to get great purchase or bite and the bone, but it felt adequate and as good abide as she was going to have in her bone. The repair was augmented with 0 Ethibond and then the tourniquet dropped. The wound was copiously irrigated with sterile saline and hemostasis obtained with electrocautery. The wound was then closed in a layered fashion using 2-0 Vicryl for subcutaneous tissue and 3-0 nylon on the skin. During this portion of the case the ankle was kept in continuous plantar flexion with care taken not to dorsiflex the ankle and pull out her suture anchor. Wound was then cleansed with sterile saline, dried, and sterile dressings applied. With the ankle kept in a plantarflexed position, a short leg cast was then applied, well-padded. After the cast was hardened, the patient was extubated and flipped supine onto her cart. She was then transferred to PACU in good condition. There were no complications during this case. Tourniquet time (min): 83 Condition: stable Disposition: PACU Specimens:: wound cultures x2, bone send for culture as well Complications:: none
[2018-11-12 06:08] LABS: Basophils % 0.1 % (0.1-2.0); Eosinophils % 0.3 % (0.1-12.0); Hematocrit 33.3 % (37.0-47.0); Hemoglobin 10.5 g/dL (12.2-16.2); Lymphocytes # 1.8 K/mm3 (0.7-4.5); Lymphocytes % 25.2 % (10-50); Mean Corpuscular HGB Conc 31.5 g/dL (31.8-35.4); Mean Corpuscular Volume 96.4 fl (81-99); Monocytes # 0.4 K/mm3 (0.1-1.0); Monocytes % 5.4 % (1.7-9.3); Neutrophils # 4.9 K/mm3 (1.8-7.8); Neutrophils % 68.9 % (37.0-80.0); Platelet Count 288 K/mm3 (142-424); Red Blood Count 3.45 M/mm3 (4.20-5.40); Red Cell Distribution Width 13.8 % (11.5-17.5); White Blood Count 7.2 K/mm3 (4.8-10.8)
[2018-11-12 06:16] LABS: Anion Gap 8.7 mEq/L (5-15); Calcium 8.6 mg/dL (8.5-10.1)
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
--- NOTE | 2018-11-12 12:50 | Progress Note ---
Subjective Date: 11/12/18 Time: 12:00 Principal diagnosis: R calcaneus fx Interval history: The patient is doing well this morning. No significant pain in the R foot, some occasional aching. Care management is working on disposition. PN: Obj Ex Vital signs: Temp Pulse Resp BP Pulse Ox 98.8 F 97 H 19 136/92 H 96 11/12/18 11:08 11/12/18 11:08 11/12/18 11:08 11/12/18 11:08 11/12/18 11:08 - Constitutional no acute distress - Routine HEENT Exam Head: Present: normocephalic Eye: Present: EOMI ENT: Present: mucous membranes moist - Routine Respiratory Exam Present: CTA bilaterally. Absent: accessory muscle use, wheezes - Routine Cardiovascular Exam Present: RRR - Routine Abdominal Exam Present: soft. Absent: tenderness - Routine Extremities Exam Comments: RLE in short leg cast, which is fitting well brisk cap refill in all toes R foot; warm/well-perfused wiggles all toes RLE calf soft proximal to cast, non-tender - Urinary Catheter Management Thomas Cath placed during this visit: yes Urethral indwelling: No Insertion date: 11/11/18 Insertion time: 07:55 Progress Note: A&P (1) Failed fixation of fracture Status: Acute Current Visit: Yes (2) Calcaneus fracture, right Status: Acute Current Visit: No (3) Hyperlipidemia Status: Acute Current Visit: Yes (4) Hypothyroidism Status: Chronic Current Visit: No (5) Depression Status: Acute Current Visit: No Assessment and Plan for All Diagnoses:: 68yo F POD 1 s/p partial calcanectomy RLE with Achilles repair after failure of fixation -- continue elevation of RLE, do not remove cast -- NWB RLE -- PT/OT -- dispo planning: strongly recommend SNF placement, care management working on this
--- NOTE | 2018-11-13 08:29 | Progress Note ---
Internal Medicine - PN: Subj *Date: 11/13/18 *Time: 08:26 Interval history: doing better - more focused and calm - no sob or sig c/o Exam Vital signs and Labs for Last 24 Hours: Temp Pulse Resp BP Pulse Ox 97.6 F 111 H 17 128/48 L 97 11/13/18 08:00 11/13/18 08:00 11/13/18 08:00 11/13/18 08:00 11/13/18 08:00 I & O for Last 24 hours: Intake & Output 11/10/18 11/11/18 11/12/18 11/13/18 11:59 11:59 11:59 11:59 Intake Total 2938 / 2938 780 / 780 2055 Output Total 1225 / 1225 1550 / 1550 150 / 150 Balance 1713 / 1713 -770 / -770 1906 / 1906 Weight 129 lb 6 oz 130 lb 8 oz 130 lb 8.007 oz Microbiology Reports for the Last 24 Hours: Microbiology 11/11/18 08:55 Ankle,Right Gram Stain - Final 11/11/18 08:55 Ankle,Right Surgical Biopsy Culture - Preliminary NO GROWTH AFTER 24 HOURS 11/11/18 08:55 Ankle,Right Gram Stain - Final 11/11/18 08:55 Ankle,Right Wound Culture - Preliminary NO GROWTH AFTER 24 HOURS - Constitutional no acute distress - *Routine HEENT Exam Head: Present: normocephalic Eye: Present: EOMI, PERRL. Absent: conjunctival icterus ENT: Present: mucous membranes dry - *Routine Neck Exam Absent: JVD - *Routine Respiratory Exam Present: CTA bilaterally - *Routine Cardiovascular Exam Present: RRR, murmur - *Routine Abdominal Exam Present: soft - *Routine Extremities Exam Comments: has splint on rt - *Routine Neurological Exam Present: alert, CN II-XII intact - Routine Psychiatric Exam Present: cooperative, anxious. Absent: good insight, good judgment Assessment and Plan (1) Failed fixation of fracture Current visit: Yes Status: Acute Category: Medical (2) Calcaneus fracture, right Current visit: No Status: Acute Qualifiers: Encounter type: subsequent encounter Calcaneus location: unspecified portion of calcaneus Fracture type: closed Fracture alignment: displaced Fracture healing: with delayed healing Qualified Code(s): S92.001G - Unspecified fracture of right calcaneus, subsequent encounter for fracture with delayed healing Category: Surgical Code(s): S92.001A - Unspecified fracture of right calcaneus, initial encounter for closed fracture (3) Hyperlipidemia Current visit: Yes Status: Acute Category: Medical Code(s): E78.5 - Hyperlipidemia, unspecified (4) Hypothyroidism Current visit: No Status: Chronic Category: Medical Code(s): E03.9 - Hypothyroidism, unspecified (5) Depression Current visit: No Status: Acute Qualifiers: Depression Type: major depressive disorder Major depression recurrence: unspecified whether recurrent Active/Remission status: currently active Major depression episode severity: moderate Qualified Code(s): F32.1 - Major depressive disorder, single episode, moderate Category: Medical Code(s): F32.9 - Major depressive disorder, single episode, unspecified (6) Anemia Current visit: Yes Status: Acute Qualifiers: Anemia type: unspecified type Qualified Code(s): D64.9 - Anemia, unspecified Category: Medical Code(s): D64.9 - Anemia, unspecified
--- NOTE | 2018-11-13 12:14 | Progress Note ---
Subjective Date: 11/13/18 Time: 10:30 Principal diagnosis: R calcaneus fx Interval history: The patient is doing well this morning, no complaints of pain at the moment. RLE has been elevated and swelling improving; cast is slightly looser at the top but still fitting well. No calf pain reported. PN: Obj Ex Vital signs: Temp Pulse Resp BP Pulse Ox 97.6 F 111 H 17 128/48 L 97 11/13/18 08:00 11/13/18 09:19 11/13/18 08:00 11/13/18 08:00 11/13/18 09:19 - Constitutional no acute distress - Routine HEENT Exam Head: Present: normocephalic Eye: Present: EOMI ENT: Present: mucous membranes moist - Routine Extremities Exam Comments: RLE in short leg cast, which is fitting well brisk cap refill in all toes R foot; warm/well-perfused wiggles all toes RLE calf soft proximal to cast, non-tender - Urinary Catheter Management Thomas Cath placed during this visit: yes Urethral indwelling: No Insertion date: 11/11/18 Insertion time: 07:55 Progress Note: A&P (1) Failed fixation of fracture Status: Acute Current Visit: Yes (2) Calcaneus fracture, right Status: Acute Current Visit: No (3) Hypothyroidism Status: Chronic Current Visit: No (4) Depression Status: Acute Current Visit: No (5) Anemia Status: Acute Current Visit: Yes Assessment and Plan for All Diagnoses:: 68yo F POD 2 s/p partial calcanectomy RLE with Achilles repair after failure of fixation -- continue elevation of RLE, do not remove cast -- NWB RLE -- PT/OT -- dispo planning: strongly recommend SNF placement, care management working on this
[2018-11-14 11:38] LABS: Basophils % 0.3 % (0.1-2.0); Eosinophils # 0.1 K/mm3 (0.0-0.4); Hematocrit 40.5 % (37.0-47.0); Hemoglobin 12.9 g/dL (12.2-16.2); Lymphocytes # 1.2 K/mm3 (0.7-4.5); Lymphocytes % 18.6 % (10-50); Mean Corpuscular HGB Conc 31.9 g/dL (31.8-35.4); Mean Corpuscular Volume 95.1 fl (81-99); Monocytes # 0.4 K/mm3 (0.1-1.0); Monocytes % 5.4 % (1.7-9.3); Neutrophils # 4.8 K/mm3 (1.8-7.8); Neutrophils % 74.7 % (37.0-80.0); Platelet Count 357 K/mm3 (142-424); Red Blood Count 4.26 M/mm3 (4.20-5.40); Red Cell Distribution Width 13.6 % (11.5-17.5); White Blood Count 6.4 K/mm3 (4.8-10.8)
[2018-11-14 11:43] LABS: Anion Gap 14.1 mEq/L (5-15); Calcium 9.4 mg/dL (8.5-10.1)
--- NOTE | 2018-11-14 14:12 | Progress Note ---
Subjective Date: 11/14/18 Time: 11:00 Principal diagnosis: R calcaneus fx Interval history: The patient is feeling well this morning. She has no complaints. PN: Obj Ex Vital signs: Temp Pulse Resp BP Pulse Ox 98.1 F 83 17 130/75 95 11/14/18 08:00 11/14/18 08:00 11/14/18 08:00 11/14/18 08:00 11/14/18 08:25 - Constitutional no acute distress - Routine HEENT Exam Head: Present: normocephalic Eye: Present: EOMI ENT: Present: mucous membranes moist - Routine Respiratory Exam Absent: accessory muscle use, wheezes - Routine Abdominal Exam Present: soft. Absent: tenderness - Routine Extremities Exam Comments: RLE in short leg cast, which is fitting well brisk cap refill in all toes R foot; warm/well-perfused wiggles all toes RLE calf soft proximal to cast, non-tender - Urinary Catheter Management Thomas Cath placed during this visit: yes Urethral indwelling: No Insertion date: 11/11/18 Insertion time: 07:55 Progress Note: A&P (1) Failed fixation of fracture Status: Acute Current Visit: Yes (2) Calcaneus fracture, right Status: Acute Current Visit: No (3) Hypothyroidism Status: Chronic Current Visit: No (4) Depression Status: Acute Current Visit: No (5) Anemia Status: Acute Current Visit: Yes Assessment and Plan for All Diagnoses:: 68yo F POD 3 s/p partial calcanectomy RLE with Achilles repair after failure of fixation -- continue elevation of RLE, do not remove cast -- NWB RLE -- PT/OT -- dispo planning: strongly recommend SNF placement, care management working on this
--- NOTE | 2018-11-15 08:52 | Progress Note ---
Internal Medicine - PN: Subj *Date: 11/15/18 *Time: 08:51 Interval history: doing ok with stable labs Exam Vital signs and Labs for Last 24 Hours: Temp Pulse Resp BP Pulse Ox 98.3 F 105 H 20 136/94 H 95 11/15/18 08:00 11/15/18 08:00 11/15/18 08:00 11/15/18 08:00 11/15/18 08:00 Laboratory Results - last 24 hr 11/14/18 11:20: WBC 6.4, RBC 4.26, Hgb 12.9, Hct 40.5, MCV 95.1, MCH 30.3, MCHC 31.9, RDW 13.6, Plt Count 357, MPV 7.0 L, Neut % (Auto) 74.7, Lymph % (Auto) 18.6, [place] % (Auto) 5.4, Eos % (Auto) 1.0, Baso % (Auto) 0.3, Neut # (Auto) 4.8, Lymph # (Auto) 1.2, [place] # (Auto) 0.4, Eos # (Auto) 0.1, Baso # (Auto) 0.0 11/14/18 11:20: Sodium 143, Potassium 4.1, Chloride 105, Carbon Dioxide 28, Anion Gap 14.1, BUN 10 D, Creatinine 0.67, Estimated Creat Clear 51, Estimated GFR 88, Est GFR ( Amer) 106, Glucose 108 H, Calcium 9.4 I & O for Last 24 hours: Intake & Output 11/12/18 11/13/18 11/14/18 11/15/18 11:59 11:59 11:59 11:59 Intake Total 780 / 780 2056 / 2056 1200 / 1200 840 / 840 Output Total 1550 / 1550 750 / 750 950 / 950 550 / 550 Balance -770 / -770 1306 / 1306 250 / 250 290 / 290 Weight 130 lb 8 oz 130 lb 8.007 oz 130 lb 8.007 oz 129 lb 7 oz Microbiology Reports for the Last 24 Hours: Microbiology 11/11/18 08:55 Ankle,Right Gram Stain - Final 11/11/18 08:55 Ankle,Right Surgical Biopsy Culture - Preliminary NO GROWTH AFTER 72 HOURS 11/11/18 08:55 Ankle,Right Gram Stain - Final 11/11/18 08:55 Ankle,Right Wound Culture - Preliminary NO GROWTH AFTER 72 HOURS - Constitutional no acute distress - *Routine HEENT Exam Head: Present: normocephalic Eye: Present: EOMI, PERRL ENT: Present: mucous membranes dry - *Routine Neck Exam Present: supple - *Routine Respiratory Exam Present: CTA bilaterally - *Routine Cardiovascular Exam Present: RRR - *Routine Extremities Exam Comments: cast rt lower leg - *Routine Skin Exam Present: intact - *Routine Neurological Exam Present: alert, oriented X3, CN II-XII intact - Routine Psychiatric Exam Present: normal affect Assessment and Plan (1) Failed fixation of fracture Current visit: Yes Status: Acute Category: Medical (2) Calcaneus fracture, right Current visit: No Status: Acute Qualifiers: Encounter type: subsequent encounter Calcaneus location: unspecified portion of calcaneus Fracture type: closed Fracture alignment: displaced Fracture healing: with delayed healing Qualified Code(s): S92.001G - Unspecified fracture of right calcaneus, subsequent encounter for fracture with delayed healing Category: Surgical Code(s): S92.001A - Unspecified fracture of right calcaneus, initial encounter for closed fracture (3) Hypothyroidism Current visit: No Status: Chronic Category: Medical Code(s): E03.9 - Hypothyroidism, unspecified (4) Depression Current visit: No Status: Acute Qualifiers: Depression Type: major depressive disorder Major depression recurrence: unspecified whether recurrent Active/Remission status: currently active Major depression episode severity: moderate Qualified Code(s): F32.1 - Major depressive disorder, single episode, moderate Category: Medical Code(s): F32.9 - Major depressive disorder, single episode, unspecified (5) Anemia Current visit: Yes Status: Acute Qualifiers: Anemia type: unspecified type Qualified Code(s): D64.9 - Anemia, unspecified Category: Medical Code(s): D64.9 - Anemia, unspecified
--- NOTE | 2018-11-15 10:04 | Progress Note ---
Subjective Date: 11/15/18 Time: 09:00 Principal diagnosis: R calcaneus fx Interval history: The patient is doing well this morning, no complaints of pain. PN: Obj Ex Vital signs: Temp Pulse Resp BP Pulse Ox 98.3 F 105 H 20 136/94 H 95 11/15/18 08:00 11/15/18 08:00 11/15/18 08:00 11/15/18 08:00 11/15/18 08:00 - Constitutional no acute distress - Routine HEENT Exam Head: Present: normocephalic Eye: Present: EOMI ENT: Present: mucous membranes moist - Routine Respiratory Exam Present: CTA bilaterally. Absent: accessory muscle use, wheezes - Routine Cardiovascular Exam Present: RRR - Routine Abdominal Exam Present: soft. Absent: tenderness - Routine Extremities Exam Comments: RLE in short leg cast, which is fitting well brisk cap refill in all toes R foot; warm/well-perfused wiggles all toes RLE calf soft proximal to cast, non-tender - Urinary Catheter Management Thomas Cath placed during this visit: yes Urethral indwelling: No Insertion date: 11/11/18 Insertion time: 07:55 Progress Note: A&P (1) Failed fixation of fracture Status: Acute Current Visit: Yes (2) Calcaneus fracture, right Status: Acute Current Visit: No (3) Hypothyroidism Status: Chronic Current Visit: No (4) Depression Status: Acute Current Visit: No (5) Anemia Status: Acute Current Visit: Yes Assessment and Plan for All Diagnoses:: 68yo F POD 4 s/p partial calcanectomy RLE with Achilles repair after failure of fixation -- continue elevation of RLE, do not remove cast -- NWB RLE -- dispo: patient to be transferred to [place] today -- f/u with me in 10 days
--- NOTE | 2018-11-15 10:40 | Discharge Summary ---
General - General Admission date:: 11/10/18 Discharge date: 11/15/18 HPI HPI: 68-year-old female who was admitted earlier this afternoon from my office. She presented today for routine postoperative follow-up after undergoing open reduction internal fixation of a right calcaneus fracture on 10/31/2018. She had presented earlier that day (10/31/18) to the [facility] for foot pain and found to have a tongue type calcaneus fracture with impending soft tissue compromise and conversion to an open fracture. She had severe swelling and ecchymosis of the heel with 2 very large blood-filled blisters. Surgery was performed that afternoon and the fracture successfully reduced and fixed with 2 bicortical screws. I was satisfied with the fixation and instructed the patient to remain strictly nonweightbearing on this leg. Concern was expressed by myself and ph ysical therapy regarding her ability to safely return home. However, her insurance denied coverage for SNF placement and she was unable to afford payment [id number]. I completed an extensive peer to peer review with an insurance company physician and explained the seriousness of her injury, her soft tissue damage, and the need for strict nonweightbearing with physical therapy and wound care; the request was still denied. The patient was forced to return to her home with home health. Home health notes were received today with the patient and it is noted that they believe the patient to be a poor historian and confused regarding her medications; it was documented that she was not taking her antibiotics or pain medication as prescribed due to confusion. She was suspicious that the home health nurse was trying to overdose her on her antibiotics. It should also be noted that during her hospitalization after surgery last week, the patient was noted to have independently gotten out of bed, put a blanket on the floor, and scoot to the bathroom on her buttocks. Her home physical therapy notes state the patient was considered a high fall risk and will require considerable assistance for ambulation. When she presented to my clinic today she had no complaints but on reviewing her x-ray I immediately noticed that the fracture reduction had been lost. When I asked the patient if she has been walking on her ankle she said that she was "trying not to." On further questioning the patient admits that she has stumbled while trying to get up from her wheelchair and place weight on her ankle several times. I also suspect she has been walking on this frequently when unsupervised. She is an extremely poor historian and is frequently confused. She became very tearful and reported fear about admission to the hospital due to the presence of bed alarms at her last visit that scared her. She was accompanied by her two sisters today in clinic and they both state that for many years she has been "not right." They are concerned about their ability to watch her 24 hours a day at home and to prevent her from walking on her foot again in the future. She was admitted from clinic with plans to revise her ORIF in the morning. Hospital Course Hospital Course: Surgery was performed on 11/11/2018; the fracture was unable to be repaired so a partial calcanectomy performed with Achilles repair. See operative note for full detail. A cast was placed on the leg during surgery and the patient was instructed to remain nonweightbearing on this extremity. She was admitted for ongoing postoperative care, physical therapy, and placement. She did well with therapy throughout her stay but demonstrated difficulty in ambulation and ADLs without assistance. Behavioral health consult was obtained and concern was expressed for her ability to care for herself at home alone. Recommendation was made for SNF placement by myself, behavioral health, and physical therapy. On 11/15/2018 the patient was accepted at [facility] and medically cleared for discharge. There were no medical issues during her stay. Objective Vital signs: Temp Pulse Resp BP Pulse Ox 98.3 F 105 H 20 136/94 H 95 11/15/18 08:00 11/15/18 08:00 11/15/18 08:00 11/15/18 08:00 11/15/18 08:00 - *Routine HEENT Exam Head: Present: normocephalic Eye: Present: EOMI ENT: Present: mucous membranes moist - *Routine Respiratory Exam Present: CTA bilaterally - *Routine Cardiovascular Exam Present: RRR - *Routine Abdominal Exam Present: soft. Absent: tenderness - *Routine Extremities Exam Comments: RLE in short leg cast, which is fitting well brisk cap refill in all toes R foot; warm/well-perfused wiggles all toes RLE calf soft proximal to cast, non-tender Results Labs on day of discharge: Labs from last 24 hours 11/14/18 11/14/18 11:20 11:20 WBC 6.4 RBC 4.26 Hgb 12.9 Hct 40.5 MCV 95.1 MCH 30.3 MCHC 31.9 RDW 13.6 Plt Count 357 MPV 7.0 L Neut % (Auto) 74.7 Lymph % (Auto) 18.6 Franklin % (Auto) 5.4 Eos % (Auto) 1.0 Baso % (Auto) 0.3 Neut # (Auto) 4.8 Lymph # (Auto) 1.2 Franklin # (Auto) 0.4 Eos # (Auto) 0.1 Baso # (Auto) 0.0 Sodium 143 Potassium 4.1 Chloride 105 Carbon Dioxide 28 Anion Gap 14.1 BUN 10 D Creatinine 0.67 Estimated Creat Clear 51 Estimated GFR 88 Est GFR ( Amer) 106 Glucose 108 H Calcium 9.4 Preliminary micro results at discharge 11/11/18 08:55 Surgical Biopsy Culture - Preliminary Ankle,Right NO GROWTH AFTER 72 HOURS 11/11/18 08:55 Wound Culture - Preliminary Ankle,Right NO GROWTH AFTER 72 HOURS DS: Diagnosis - Discharge Diagnosis (1) Failed fixation of fracture Status: Acute (2) Calcaneus fracture, right Status: Acute (3) Hypothyroidism Status: Chronic (4) Depression Status: Acute (5) Anemia Status: Acute Discharge Plan - Patient Discharge Instructions ACTIVITY: Up with assistance (NWB RLE) DIET: continue same diet Additional Instructions: NO WEIGHTBEARING on right leg -- elevate RLE on 2 pillows while in bed -- pain Rx given -- f/u with Dr. Max in 10 days Patient Instructions: DI for Surgical Site Infection, Surgical Site Infection, DI for Calcaneus Fracture - Follow up Plan Follow up with: Jena Max MD [Physician] - 11/22/18 9:30 am (9:30am pleas earrive 30 minutes early for x-ray) Disposition: Xfer SNF Home Medications: Home Medications Medication Instructions Recorded Confirmed Type ergocalciferol (vitamin D2) 50,000 50,000 unit PO WEEKLY cap 07/27/17 11/10/18 History unit capsule Calcium Carbonate/Vitamin D3 1 cap PO DAILY 05/13/18 11/10/18 History [Calcium 600 + Vit D Softgel] Atorvastatin Calcium [Atorvastatin 10 mg PO HS 11/01/18 11/10/18 History 10mg Tab] Levothyroxine Sodium 25 mcg PO DAILY 11/01/18 11/10/18 History [Levothyroxine 25mcg (0.025mg) Tab] Oxycodone HCl/Acetaminophen 1 each PO Q6HP PRN #30 tab 11/04/18 11/10/18 Rx [Percocet 5/325mg tablet] alendronate 70 mg tablet 70 mg PO WEEKLY #14 tab 11/09/18 11/10/18 Rx Sertraline HCl [Zoloft 50mg tablet] 50 mg PO DAILY #30 tab 11/10/18 11/10/18 Rx Oxycodone HCl/Acetaminophen 1 each PO Q6HP PRN #30 tab 11/15/18 Rx [Percocet 5/325mg tablet] Prescriptions/Medication Reconciliation: New Oxycodone HCl/Acetaminophen [Percocet 5/325mg tablet] 1 each PO Q6HP PRN #30 tab PRN Reason: Moderate Pain Continued ergocalciferol (vitamin D2) 50,000 unit capsule 50,000 unit PO WEEKLY cap alendronate 70 mg tablet 70 mg PO WEEKLY #14 tab Calcium Carbonate/Vitamin D3 [Calcium 600 + Vit D Softgel] 1 cap PO DAILY Atorvastatin Calcium [Atorvastatin 10mg Tab] 10 mg PO HS Oxycodone HCl/Acetaminophen [Percocet 5/325mg tablet] 1 each PO Q6HP PRN #30 tab PRN Reason: Moderate To Severe Pain Levothyroxine Sodium [Levothyroxine 25mcg (0.025mg) Tab] 25 mcg PO DAILY Discontinued cephALEXin [cephALEXin 500mg capsule] 1,000 mg PO Q12H 7 Days cap
== END 2018-11-15 11:13 | DRG 496 ==
LOC: RAD 14:47 → 2ND 14:47
PROVIDERS: ADMIT Orthopaedic Surgery; ATTEND Orthopaedic Surgery
CPT/HCPCS: 36415; 73620; 73630; 80048; 80053; 81001; 84436; 84443; 85025; 85610; 85730; 87070; 87075; 87205; 88305; 88311; 97116; 97162; 97530; C1713; J2405

== ENCOUNTER → 2018-11-22 08:56 | Outpatient (CLI) | payer MEDICARE, MEDICAID, SELFPAY ==
--- NOTE | 2018-11-22 09:02 | XR_ITS ---
XR foot RT 2V HISTORY: Follow-up surgery, pain ITS.REASON: rt heel fracture ORDERING PHYSICIAN: Willy West MD PATIENT AGE: 68 years COMPARISON: 11/11/2018 FINDINGS: Study is obtained through a cast. Prior osteotomy of the displaced calcaneal fragment along the posterior superior aspect of the calcaneus. Previously noted small anchor screw along the posterior aspect of the residual calcaneus has distracted away from the calcaneus. The tip of the screw is approximately 2 mm cephalad to the remaining body of the calcaneus. There is good alignment. IMPRESSION: The small anchor screw along the posterior aspect of the calcaneus has distracted away from the main body of the calcaneus with the tip of the screw approximately 2 mm cephalad to the calcaneus
== END ==
PROVIDERS: Visit Provider Orthopaedic Surgery
DX: S92.001A Unspecified fracture of right calcaneus, initial encounter for closed fracture (principal)
CPT/HCPCS: 73620

== ENCOUNTER → 2018-12-23 09:58 | Outpatient (CLI) | payer MEDICARE, MEDICAID, SELFPAY ==
--- NOTE | 2018-12-23 10:09 | XR_ITS ---
PROCEDURE: XR FOOT RT 2V CLINICAL INDICATION: Heel FX Follow-up fracture COMPARISON: from 11/22/2018 FINDINGS: Studies obtained through a cast. Prior osteotomy of the calcaneus as before with an anchor screw along the pubic superior aspect of the osteotomy site no change since previous exam. IMPRESSION: No change status post osteotomy of the calcaneus with a anchor screw along the posterior and superior aspect of the calcaneus at the osteotomy site Dictated by: Herb Pizano MD 12/23/2018 10:22 Signed by: <Electronically signed by Herb Pizano MD in [place]> 12/23/2018 10:22
== END ==
PROVIDERS: PCP Family Medicine; Visit Provider Orthopaedic Surgery
DX: S92.001A Unspecified fracture of right calcaneus, initial encounter for closed fracture (principal)
CPT/HCPCS: 73620

== ENCOUNTER 2018-12-23 12:51 | Outpatient (RCR) | payer MEDICARE, MEDICAID, SELFPAY | END 2018-12-23 13:15 | disposition home or self-care (01) | LOC: PT 12:51 | PROVIDERS: Visit Provider Orthopaedic Surgery | DX: S92.001A Unspecified fracture of right calcaneus, initial encounter for closed fracture (principal) | CPT/HCPCS: 97760 ==

== ENCOUNTER → 2019-01-24 09:38 | Outpatient (CLI) | payer MEDICARE, MEDICAID, SELFPAY ==
--- NOTE | 2019-01-24 09:48 | XR_ITS ---
PROCEDURE: XR FOOT RT 2V CLINICAL INDICATION: Heel FX COMPARISON: Foot R from 10/31/2018 XR FOOT RT 2V from 12/23/2018 FINDINGS: Exam shows persistent metallic foreign body which is part of a fixation screw within the soft tissues posterior to the calcaneus. The postoperative findings because of the calcaneal fracture are stable with some residual bone fragments or dystrophic calcifications posterior to the calcaneal operative defect. There is however moderate increased density and some prominence of soft tissues posterior to the calcaneus in this operative area as well. There is generalized narrowing of the interphalangeal joints of all digits. There is no acute fracture. The alignment appears normal. IMPRESSION: Osteopenia. Stable postoperative findings involving calcaneus compared to 12/23/2018 with persistent posterior soft tissue metallic foreign body as described above. There could however be some associated soft tissue edema at this site. Dictated by: Serafin Lai 01/24/2019 12:48 Electronically signed by Serafin Lai in [place] 01/24/2019 12:48
== END ==
PROVIDERS: PCP Family Medicine; Visit Provider Orthopaedic Surgery
DX: S92.001A Unspecified fracture of right calcaneus, initial encounter for closed fracture (principal)
CPT/HCPCS: 73620

== ENCOUNTER 2019-02-07 11:00 | Outpatient (RCR) | payer MEDICARE, MEDICAID, SELFPAY ==
--- NOTE | 2018-12-29 11:05 | HMH.PTOPEV ---
PT Outpatient Evaluation Rehab PT Outpatient Evaluation Start: 12/29/18 10:08 Freq: Status: Active Protocol: Document 12/29/18 10:56 CARLA (Rec: 12/29/18 11:05 CARLA [id number]) Electronically Signed By George Parker, PT 12/29/18 10:56 Outpatient Therapy Subjective History Subjective History Pt is 68 yowf who presents ~ 7 wks S/P right partial calcanectomy with achilles repair after prior failed ORIF (secondary to non-compliance with WB status). She reports no current c/o pain at rest, only pain with WB. She was again instructed to maintain TTWB while ambulating. She reports some edema remains and small areas of superficial numbness as expected after surgery. She has hx of HL and osteoporosis. Chief Complaint Pain,Stiff,Swelling Symptom Type Ache Symptoms Relieved By Rest/Positioning Symptoms Aggravated By Walking Prior Functional Limitations None Current Functional Limitations Standing,Recreation Activity, Walking Symptom Description Activity Dependent Level of pain today (0-10) 0 Pain scale - at its worst (0-10) 8 Ankle/Foot Eval Gait Observation General Gait Pattern Observation Antalgic Gait,Decrease Weight Bear (R),Decrease Stride Lngth (R) Assistive Device Ambulation Assistive Device Rolling Walker ROM right Ankle/Foot Dorsiflexion w/Knee Extended 0-18 Active Range Motion (degrees) Ankle/Foot Dorsiflexion w/Knee Extended 0-22 Passive Range (degrees) Ankle/Foot Plantar Flexion Active Range 0-35 of Motion (degrees) Ankle/Foot Plantar Flexion Passive Range 0-40 of Motion (degrees) Ankle/Foot Eversion Active Range of 0-7 Motion (degrees) Ankle/Foot Eversion Passive Range of 0-10 Motion (degrees) Ankle/Foot Inversion Active Range of 0-24 Motion (degrees) Ankle/Foot Inversion Passive Range of 0-27 Motion (degrees) MMT Ankle Dorsiflexion Strength Grade 3+ Fair+ Ankle Plantarflexion Strength Grade 3+ Fair+ Foot Eversion Strength Grade 3+ Fair+ Foot Inversion Strength Grade 3+ Fair+ Outpatient Therapy Assessment Impairments Problems/Impairmments Palpation Tenderness,Impaired Range of Motion,Impaired Strength,Impaired Endura
== END 2019-02-07 11:05 | disposition home or self-care (01) ==
LOC: PT 11:00
PROVIDERS: PCP Family Medicine; Visit Provider Orthopaedic Surgery
DX: S92.001D Unspecified fracture of right calcaneus, subsequent encounter for fracture with routine healing (principal)
CPT/HCPCS: 97110; 97112; 97116; 97140; 97163

== ENCOUNTER → 2019-02-28 12:44 | Outpatient (CLI) | payer MEDICARE, MEDICAID, SELFPAY ==
--- NOTE | 2019-02-28 12:49 | XR_ITS ---
PROCEDURE: XR FOOT RT MIN 3V CLINICAL INDICATION: Heel FX Follow-up calcaneal fracture/surgery COMPARISON: Foot R from 10/31/2018 XR FOOT RT 2V from 12/23/2018 XR FOOT RT 2V from 01/24/2019 FINDINGS: S/p calcaneal surgery with calcific debris in the surgical bed. A metallic screw is noted also in the surgical bed superior to the main portion of the calcaneus as previously noted not significantly changed. There is soft tissue swelling along posterior aspect of the ankle. IMPRESSION: Overall no change in the postsurgical changes from prior calcaneal surgery as described above. Dictated by: Herb Pizano MD 02/28/2019 13:35 Electronically signed by Herb Pizano MD in [place] 02/28/2019 13:35
== END ==
PROVIDERS: PCP Family Medicine; Visit Provider Orthopaedic Surgery
DX: S92.002A Unspecified fracture of left calcaneus, initial encounter for closed fracture (principal)
CPT/HCPCS: 73630